=== PATIENT | female | born 1940 | race Caucasian/White ===

== ENCOUNTER → 2017-07-11 11:55 | Oncology outpatient (ONC) | payer OTHER, SELFPAY | PROVIDERS: Family Provider Physician Assistant; PCP Physician Assistant; Visit Provider Internal Medicine Hematology & Oncology ==

== ENCOUNTER 2018-11-25 23:28 | Emergency (ER) | payer MEDICARE, OTHER, SELFPAY ==
--- NOTE | 2018-11-25 23:31 | ED_ITS ---
HPI - Chest Pain General Chief Complaint: Chest Pain Stated Complaint: chest pain Time Seen by Provider: 11/25/18 23:31 Source: patient and family Mode of arrival: Ambulatory Limitations: no limitations History of Present Illness HPI narrative: 78F non smoker with history of severe GERD, HTN, hyperlipidemia, presents with 2 days of severe epigastric pain. She states its worse when she eats and refuses to lay flat as this worsens her pain as well. She denies any radiation of her pain. She denies associated symptoms such as dizziness, weakness, lightheadedness or shortness of breath. She exercises daily and d enies any provocation of symptoms. She states her symptoms started 2 days ago after eating soup with unknown ingredients. She denies recent travel, injury, surgeries, or pain and swelling in lower legs. She' shad no fever or chills. MD complaint: chest pain Onset (ago): day(s) Duration: constant Onset: after eating Pain location: epigastric Severity: moderate Quality: aching Pain radiation: none Exacerbating factors: eating, supine and palpation Associated symptoms: nausea Treatments prior to arrival chest pain: none Related Data On Oral Contraceptives: No Home Medications Medication Instructions Recorded Confirmed CALCIUM CITRATE/VITAMIN D3 2 tab PO QDAY #0 07/12/12 (Calcitrate + Vit D Caplet) COENZYME Q10/VITAMIN E (CO-Q-10 Q DAY #0 10/02/12 100mg) fexofenadine 90 mg PO QDAY #0 10/02/12 losartan 50 mg PO QDAY #0 10/02/12 melatonin 5 mg PO HS #0 10/02/12 simvastatin [Zocor] 20 mg HS #0 10/02/12 calcium carbonate [Tums] 500 mg PO PRN PRN #0 06/25/16 magnesium amino acid chelate 125 mg PO QDAY #0 06/25/16 Previous Rx's Medication Instructions Recorded estradiol [Estrace] 1 gm VAGINAL PRN PRN #1 tube 06/25/16 anastrozole 1 mg PO QDAY #90 tab 07/11/17 Allergies Allergy/AdvReac Type Severity Reaction Status Date / Time lisinopril [LISINOPRIL] Allergy Mild Cough Verified 11/25/18 23:40 lorazepam [LORAZEPAM] AdvReac Unknown DEPRESSION Verified 11/25/18 23:40 BRAZIL NUT Allergy Unknown Uncoded 05/18/17 12:19 Review of Systems Constitutional Constitutional: Denies chills, Denies fatigue, Denies fever(s), Denies frequent falls, Denies lethargy and Denies weakness Eyes Eyes: Denies change in vision, Denies eye discharge, Denies irritation and Denies loss of vision ENT Ears, Nose, Mouth, and Throat: Denies change in voice, Denies dizziness, Denies neck pain, Denies sore throat and Denies throat swelling Cardiovascular Cardiovascular: Denies chest pain, Denies irregular heart rhythm, Denies lightheadedness, Denies palpitations, Denies dyspnea, Denies dyspnea on exertion and Denies orthopnea Respiratory Respiratory: Denies cough, Denies dyspnea, Denies dyspnea on exertion and Denies wheezing Gastrointestinal Gastrointestinal: Reports abdominal pain, Denies change in bowel habits, Denies diarrhea, Reports nausea and Denies vomiting Genitourinary Genitourinary: Denies hematuria, Denies flank pain, Denies urinary incontinence and Denies urinary urgency Musculoskeletal Musculoskeletal: Denies back pain, Denies muscle weakness, Denies neck pain, Denies numbness and Denies tingling Integumentary/Breasts Skin/Breast: Denies pruritus, Denies erythema, Denies rash and Denies wounds Neurologic Neurologic: Denies behavioral changes, Denies confusion, Denies dizziness, Denies frequent falls, Denies loss of vision, Denies numbness, Denies tingling and Denies weakness Psychiatric Psychiatric: Denies anxiety, Denies behavioral changes, Denies confusion, Denies depression, Denies homicidal ideation and Denies suicidal ideation Endocrine Endocrine: Denies fatigue, Denies flushing and Denies palpitations Hematologic/Lymphatic Hematologic/Lymphatic: Denies easy bruising Allergic/Immunologic Allergic/Immunologic: Denies urticaria, Denies throat swelling and Denies wheezing Patient History Social History Smoking Status: Unknown if ever smoked Social History Smoking Status: Unknown if ever smoked Exam Narrative Exam Narrative: GENERAL: [78] year old patient appears stated age. Well- nourished, well-developed patient, in mild distress. HEAD: Atraumatic. Normocephalic. EYES: Pupils equal round and reactive. Extraocular motions intact. No scleral icterus. No injection or drainage. ENT: Nose without bleeding, purulent drainage. Throat without erythema, tonsillar hypertrophy or exudate. Airway patent. NECK: Trachea midline. Non tender CARDIOVASCULAR: Regular rate and rhythm without murmurs, gallops, or rubs. RESPIRATORY: Clear to auscultation. Breath sounds equal bilaterally. No wheezes, rales, or rhonchi. GASTROINTESTINAL: Abdomen soft, severe tenderness in the epigastrium, nondistended. EXTREMITIES: No edema or joint tenderness. BACK: Nontender without deformity or crepitance. No flank tenderness. NEURO: AOx3. SKIN: No rash or erythema of visible areas Initial Vital Signs Initial Vital Signs: Vital Signs Temperature 98.9 F 11/25/18 23:35 Pulse Rate 65 11/25/18 23:35 Respiratory Rate 14 11/25/18 23:35 Blood Pressure 158/109 H 11/25/18 23:35 Pulse Oximetry 100 11/25/18 23:35 Scores HEART Score Heart Score history: Slightly Suspicious Heart Score EKG: Normal Heart Score Age: > or = 65 years old Heart Score risk factors: 1-2 risk factors Heart Score troponin: < or = to normal limit Heart Score Total: 3 Course Course Course Narrative: Patient resting comfortably after the above-stated medications Orders Ordered: ED Orders 11/25/18 23:35 Complete Blood Count AUTO DIFF Stat Comprehensive Metabolic Panel Stat Lipase Stat Troponin & CK Cardiac Panel Stat 11/25/18 23:36 EKG-12 Lead Routine 11/25/18 23:39 XR chest 1V Stat 11/26/18 US abdomen limited Stat 11/26/18 00:54 CT chest abdomen w con Stat 11/26/18 02:21 Troponin I Stat Discontinued Medications Hydrocodone Bitart/Acetaminophen (Vicodin Prepack) 1 bottle MISC SEEINSTR ONE Stop: 11/26/18 04:08 Last Admin: 11/26/18 04:18 Dose: 1 bottle Documented by: MICHAELN Al Hydrox/Mg Hydrox/Simethicone 20 ml/ Lidocaine HCl 15 ml 0 ml PO NOW ONE Stop: 11/25/18 23:40 Last Admin: 11/25/18 23:45 Dose: 30 ml Documented by: KBROTEM Hydromorphone HCl (Dilaudid) 0.5 mg IV NOW ONE Stop: 11/26/18 02:11 Last Admin: 11/26/18 02:19 Dose: 0.5 mg Documented by: MILLER Sodium Chloride (Normal Saline 0.9%) 1,000 mls @ 150 mls/hr IV CONT ROXANNE Last Infusion: 11/26/18 04:19 Dose: 0 mls/hr Documented by: Admin: 11/25/18 23:46 Dose: 150 mls/hr Documented by: VIOLET Ketorolac Tromethamine (Toradol) 15 mg IV NOW ONE Stop: 11/26/18 00:55 Last Admin: 11/26/18 00:58 Dose: 15 mg Documented by: MILLER Ondansetron HCl (Zofran Odt Prepack) 1 bottle MISC SEEINSTR ONE Stop: 11/26/18 04:08 Last Admin: 11/26/18 04:18 Dose: 1 bottle Documented by: NILESH Pantoprazole Sodium (Protonix) 40 mg IV NOW ONE Stop: 11/25/18 23:40 Last Admin: 11/25/18 23:45 Dose: 40 mg Documented by: VIOLET Vital Signs Vital signs: Vital Signs - 8 hr 11/25/18 23:35 11/26/18 00:00 11/26/18 00:30 Temperature 98.9 F Pulse Rate 65 71 60 Respiratory Rate 14 21 18 Blood Pressure 158/109 H Blood Pressure [Right Arm] 140/60 127/57 L Pulse Oximetry 100 98 96 11/26/18 01:53 11/26/18 02:30 11/26/18 04:00 Temperature Pulse Rate 61 48 L 49 L Respiratory Rate 22 15 14 Blood Pressure Blood Pressure [Right Arm] 137/70 127/57 L 118/49 L Pulse Oximetry 95 94 98 11/26/18 04:26 Temperature Pulse Rate 52 L Respiratory Rate 15 Blood Pressure 118/49 L Blood Pressure [Right Arm] Pulse Oximetry 99 MDM - Chest Pain Lab Data Result diagrams: 11/25/18 23:35 11/25/18 23:35 Labs: Lab Results 11/25/18 11/25/18 11/26/18 Range/Units 23:35 23:35 02:21 WBC 5.1 (4.5-11.0) X10^3/uL RBC 3.84 L (4.0-5.2) X10^6/uL Hgb 11.8 L (12.0-16.0) g/dL Hct 34.6 L (36-46) % MCV 90.1 (80-100) fL MCH 30.7 (26-34) PG MCHC 34.1 (30-36) % RDW 12.7 (11.6-14.8) % Plt Count 251 (150-400) X10^3/uL Neut % (Auto) 48.0 L (50-75) % Lymph % (Auto) 37.6 (25-40) % [place] % (Auto) 9.6 (3-14) % Eos % (Auto) 4.1 H (2-4) % Baso % (Auto) 0.7 (0-2) % Neut # (Auto) 2500 (4511-7116) /uL Lymph # (Auto) 1900 (2775-7219) /uL [place] # (Auto) 500 (0-900) /uL Eos # (Auto) 200 (0-450) /uL Baso # (Auto) 0 (0-100) /uL Sodium 141 (137-145) mmol/L Potassium 4.5 (3.4-5.1) mmol/L Chloride 105 (98-107) mmol/L Carbon Dioxide 29 (22-32) mmol/L BUN 19 H (7-17) mg/dL Creatinine 0.70 (0.52-1.04) mg/dL Estimated GFR > 60.0 (>60) mL/min BUN/Creatinine Ratio 27.1 H (6-22) Glucose 103 (80-110) mg/dL Calcium 10.4 H (8.4-10.2) mg/dL Total Bilirubin 0.2 (0.2-1.3) mg/dL AST 27 (14-36) IU/L ALT 13 (9-52) IU/L Alkaline Phosphatase 42 (38-126) U/L Total Creatine Kinase 51 (30-135) U/L CK-MB (CK-2) TNP CK-MB (CK-2) Rel Index TNP Troponin I < 0.012 < 0.012 (0.01-0.034) ng/mL Total Protein 7.9 (6.3-8.2) g/dL Albumin 4.7 (3.5-5.0) g/dL Globulin 3.2 (1.7-4.1) g/dL Albumin/Globulin Ratio 1.5 (1.0-2.8) Lipase 126 (23-300) U/L Imaging Data Chest x-ray: Attestation: I personally reviewed and interpreted this imaging study as follows: My impression: No acute process CT scan - chest: Radiologist's impression: Normal CT of chest, mild dilation of ga llbladder, no other significant findings in CT of abdomen ECG Data Attestation: I personally reviewed and interpreted this ECG as follows: Prior ECG tracings: not available for review Interpretation: EKG is normal sinus rhythm rate [61 ] and free of any signs of ischemia or ectopy. No ST segmental elevation or depression. No T wave inversions MDM Narrative Medical decision making narrative: Multiple causes of chest pain considered including [place], PE, pneumothorax, pneumonia, aortic dissection, and pleurisy. Patient reports no radiation, no diaphoresis, no provocation with exertion, and no vomiting Patient has reproducible epigastric pain, worse when laying flat. Labs are very reassuring and patient experience tremendous response to medications and felt quite good. Discharge Plan Departure Patient Disposition: Home Clinical Impression: Epigastric pain Discharge Date/Time: 11/26/18 04:27 Instructions: DI for Epigastric Pain Activity Restrictions/Additional Instructions: *You have been diagnosed with [epigastric pain] *What to do: *Take medications as directed *Follow up with your primary care provider in 2-3 days, call for an appointment. Let them know you were seen in the Emergency Department and that we ask that you be seen in follow up *Return to ER if you should have any new, worsening or concerning symptoms Prescriptions: No Action CALCIUM CITRATE/VITAMIN D3 (Calcitrate + Vit D Caplet) 2 tab PO QDAY Qty: 0 RF: 0 melatonin 3 MG tablet 5 mg PO HS Qty: 0 RF: 0 fexofenadine 180 MG tablet 90 mg PO QDAY Qty: 0 RF: 0 simvastatin [Zocor] 20 MG tablet 20 mg HS Qty: 0 RF: 0 losartan 25 MG tablet 50 mg PO QDAY Qty: 0 RF: 0 COENZYME Q10/VITAMIN E (CO-Q-10 100mg) Q DAY Qty: 0 RF: 0 magnesium amino acid chelate 100 MG tablet 125 mg PO QDAY Qty: 0 RF: 0 calcium carbonate [Tums] 500 MG tablet,chewable 500 mg PO PRN PRNQty: 0 RF: 0 estradiol [Estrace] 0.01 % cream 1 gm Vaginal PRN PRNQty: 1 RF: 3 anastrozole 1 MG tablet 1 mg PO QDAY Qty: 90 RF: 2 Referrals: Anyi Pérez PA-C [Primary Care Provider] -
[2018-11-25 23:35] VITALS: BP 158/109; PULSE 65; RESP 14; TEMP 37.2; O2SAT 100; BMI 25.0
--- NOTE | 2018-11-25 23:39 | DI.RAD.S_ITS ---
PROCEDURE: XR CHEST 1V INDICATIONS: chest pain TECHNIQUE: One view of the chest was acquired. COMPARISON: [facility], , CHEST 1 VIEW, 05/01/2014, 17:37. FINDINGS: Surgical changes and devices: None. Lungs and pleura: Lungs are clear. No pleural effusions or pneumothorax. Mediastinum: Mediastinal contours appear normal. Heart size is normal. Calcified tortuous aorta. Bones and chest wall: No suspicious bony lesions. Levocurvature of the thoracic spine. Overlying soft tissues appear unremarkable. IMPRESSION: No acute cardiopulmonary findings. Dictated by: Pancho Shelton M.D. on 11/26/2018 at 6:57 Approved by: Pancho Shelton M.D. on 11/26/2018 at 7:00
[2018-11-25] MEDS: PANTOPRAZOLE 40 MG VIAL IV (23:45)
[2018-11-25] MEDS: MAG HYDROX/ALUMINUM/SIMETH SUS 20 ML, LIDOCAINE VISCOUS 2% 15 ML PO (23:45)
[2018-11-25] MEDS: SODIUM CHLORIDE 0.9% 1,000 ML 150 ML IV (23:46)
[2018-11-25 23:55] LABS: Add Manual Diff / Slide Review NO; Basophils Absolute Auto 0 /uL (0-100); Basophils Percent Auto 0.7 % (0-2); Eosinophils Absolute Auto 200 /uL (0-450); Eosinophils Percent Auto 4.1 % (2-4); Hematocrit 34.6 % (36-46); Hemoglobin 11.8 g/dL (12.0-16.0); Lymphocytes Absolute Auto 1900 /uL (1100-4500); Lymphocytes Percent Auto 37.6 % (25-40); Mean Corpuscular HGB Conc 34.1 % (30-36); Mean Corpuscular Hemoglobin 30.7 PG (26-34); Mean Corpuscular Volume 90.1 fL (80-100); Monocytes Absolute Auto 500 /uL (0-900); Monocytes Percent Auto 9.6 % (3-14); Neutrophils Absolute Auto 2500 /uL (1500-7000); Platelet Count 251 X10^3/uL (150-400); Red Blood Cell Count 3.84 X10^6/uL (4.0-5.2); Red Cell Distribution Width 12.7 % (11.6-14.8); White Blood Cell Count 5.1 X10^3/uL (4.5-11.0)
[2018-11-26] VITALS: BP 140/60; PULSE 71; RESP 21; O2SAT 98
--- NOTE | 2018-11-26 | DI.US.S_ITS ---
PROCEDURE: US ABDOMEN LIMITED INDICATIONS: SEVERE EPIGASTRIC PAIN TECHNIQUE: Real-time scanning was performed of the abdominal and retroperitoneal organs, with image documentation. COMPARISON: None. FINDINGS: Liver: Liver is normal in size and homogeneous in echotexture. Gallbladder: Distended without gallstones, gallbladder wall thickening, or pericholecystic fluid. Biliary ducts: Intrahepatic bile ducts are non-dilated. Extrahepatic bile duct caliber measures 4.7 mm. Normal is 6-7 mm or less in diameter, or 10 mm or less post-cholecystectomy. Pancreas: Visualized portions of the pancreas are sonographically normal. Spleen: Spleen is normal in size and homogeneous in echotexture. Kidneys: Kidneys are subjectively normal in size and echotexture. No hydronephrosis or nephrolithiasis. No solid masses. Miscellaneous: No free abdominal fluid. IMPRESSION: No cholelithiasis or acute cholecystitis. Dictated by: Pancho Shelton M.D. on 11/26/2018 at 7:00 Approved by: Pancho Shelton M.D. on 11/26/2018 at 7:06
[2018-11-26 00:04] LABS: Alanine Aminotransferase 13 IU/L (9-52); Albumin 4.7 g/dL (3.5-5.0); Albumin Globulin Ratio 1.5 (1.0-2.8); Alkaline Phosphatase 42 U/L (38-126); Aspartate Aminotransferase 27 IU/L (14-36); BUN Creatinine Ratio 27.1 (6-22); Bilirubin Total 0.2 mg/dL (0.2-1.3); Blood Urea Nitrogen 19 mg/dL (7-17); Calcium 10.4 mg/dL (8.4-10.2); Carbon Dioxide 29 mmol/L (22-32); Chloride 105 mmol/L (98-107); Creatine Kinase 51 U/L (30-135); Estimated Glomerular Filt Rate > 60.0 mL/min (>60); Globulin 3.2 g/dL (1.7-4.1); Glucose 103 mg/dL (80-110); HEMOLYSIS < 15 (0-50); Lipase 126 U/L (23-300); Potassium 4.5 mmol/L (3.4-5.1); Sodium 141 mmol/L (137-145); Total Protein 7.9 g/dL (6.3-8.2)
[2018-11-26 00:16] LABS: Troponin I < 0.012 ng/mL (0.01-0.034)
[2018-11-26 00:30] VITALS: BP 127/57; PULSE 60; RESP 18; O2SAT 96
--- NOTE | 2018-11-26 00:54 | DI.CT.S_ITS ---
PROCEDURE: CT CHEST ABDOMEN W CON INDICATIONS: severe upper abdomen / chest pain TECHNIQUE: After the administration of intravenous contrast, 5 mm thick sections acquired from the lung apices to the iliac crests. 5 mm coronal and sagittal reformats were performed, with additional 7 mm coronal MIP reformats through the lungs. For radiation dose reduction, the following was used: automated exposure control, adjustment of mA and/or kV according to patient size. COMPARISON: None. FINDINGS: Image quality: Excellent. CHEST: Lungs and pleura: Volume loss/scarring in the lung bases. No focal consolidation, pleural effusion, or pneumothorax. Central airways are clear. Mediastinum: Heart size is normal. No pericardial effusion. No mediastinal or hilar adenopathy by size criteria. Thoracic aorta and central pulmonary arteries are normal in size. Esophagus is normal in caliber. No hiatal hernia. Chest wall: No axillary or supraclavicular adenopathy by size criteria. Thyroid gland is unremarkable. ABDOMEN: Solid organs: Liver is normal in size and enhancement. Gallbladder distended without identify gallstones or gallbladder wall thickening. Biliary system is non dilated. Pancreas enhances normally. Spleen is normal in size and enhancement. No adrenal nodules. Kidneys demonstrate normal size and enhancement, without hydronephrosis. Peritoneum and bowel: Bowel loops demonstrate normal wall thickness and caliber. No free fluid or air. Nodes and vessels: No retroperitoneal or mesenteric adenopathy by size criteria. Aorta and inferior vena cava are normal in size. Vascular calcification of the abdominal aorta and its branches. Bones: No suspicious bony lesions. No vertebral body compression fractures. Mild degenerative changes of the spine. S-shaped curvature of the thoracolumbar spine. Miscellaneous: No ventral hernias. Postsurgical changes of the left breast. IMPRESSION: No acute or suspicious findings in the chest. Distention of the gallbladder without other associated abnormality. Note: No discrepancy present in the preliminary report. Dictated by: Pancho Shelton M.D. on 11/26/2018 at 7:06 Approved by: Pancho Shelton M.D. on 11/26/2018 at 7:16
[2018-11-26] MEDS: KETOROLAC 60 MG/2 ML VIAL 15 MG IV (00:58)
[2018-11-26 01:53] VITALS: BP 137/70; PULSE 61; RESP 22; O2SAT 95
[2018-11-26] MEDS: HYDROMORPHONE 0.5 MG INJ IV (02:19)
[2018-11-26 02:30] VITALS: BP 127/57; PULSE 48; RESP 15; O2SAT 94
[2018-11-26 02:52] LABS: Troponin I < 0.012 ng/mL (0.01-0.034)
[2018-11-26 04:00] VITALS: BP 118/49; PULSE 49; RESP 14; O2SAT 98
[2018-11-26] MEDS: ONDANSETRON 4 MG ODT PREPACK 1 BOTTLE MISC (04:18)
[2018-11-26] MEDS: HYDROCODONE/ACET 5/325 PREPACK 1 BOTTLE MISC (04:18)
[2018-11-26 04:26] VITALS: BP 118/49; PULSE 52; RESP 15; O2SAT 99
== END 2018-11-26 04:27 | disposition home or self-care (01) ==
PROVIDERS: Emergency Provider Emergency Medicine; PCP Student in an Organized Health Care Education/Training Program
DX: R10.13 Epigastric pain (principal); R07.9 Chest pain, unspecified
CPT/HCPCS: 36415; 71045; 71260; 74160; 76705; 80053; 82550; 82553; 83690; 84484; 85025; 93005; 96361; 96374; 96375; 99283; 99285; C9113; J1170; J1885; Q9967

== ENCOUNTER 2019-02-19 19:28 | Emergency (ER) | payer MEDICARE, OTHER, SELFPAY ==
[2019-02-19 19:36] VITALS: BP 159/65; PULSE 59; RESP 12; TEMP 36.6; O2SAT 100
--- NOTE | 2019-02-19 19:38 | ED.CHESTPAIN ---
HPI - Chest Pain General Chief Complaint: Chest Pain Stated Complaint: Heart Burn and Elevated BP Time Seen by Provider: 02/19/19 19:38 Related Data Home Medications Medication Instructions Recorded Confirmed CALCIUM CITRATE/VITAMIN D3 2 tab PO QDAY #0 07/12/12 (Calcitrate + Vit D Caplet) COENZYME Q10/VITAMIN E (CO-Q-10 Q DAY #0 10/02/12 100mg) fexofenadine 90 mg PO QDAY #0 10/02/12 losartan 50 mg PO QDAY #0 10/02/12 melatonin 5 mg PO HS #0 10/02/12 simvastatin [Zocor] 20 mg HS #0 10/02/12 calcium carbonate [Tums] 500 mg PO PRN PRN #0 06/25/16 magnesium amino acid chelate 125 mg PO QDAY #0 06/25/16 Previous Rx's Medication Instructions Recorded estradiol [Estrace] 1 gm VAGINAL PRN PRN #1 tube 06/25/16 anastrozole 1 mg PO QDAY #90 tab 07/11/17 Allergies Allergy/AdvReac Type Severity Reaction Status Date / Time lisinopril [LISINOPRIL] Allergy Mild Cough Verified 11/25/18 23:40 lorazepam [LORAZEPAM] AdvReac Unknown DEPRESSION Verified 11/25/18 23:40 BRAZIL NUT Allergy Unknown Uncoded 05/18/17 12:19 Patient History Social History Smoking Status: Unknown if ever smoked Smoking Status: Unknown if ever smoked alcohol intake frequency: 0-2 drinks per day Substance Use Type: does not use Discharge Plan Departure Prescriptions: No Action CALCIUM CITRATE/VITAMIN D3 (Calcitrate + Vit D Caplet) 2 tab PO QDAY Qty: 0 RF: 0 melatonin 3 MG tablet 5 mg PO HS Qty: 0 RF: 0 fexofenadine 180 MG tablet 90 mg PO QDAY Qty: 0 RF: 0 simvastatin [Zocor] 20 MG tablet 20 mg HS Qty: 0 RF: 0 losartan 25 MG tablet 50 mg PO QDAY Qty: 0 RF: 0 COENZYME Q10/VITAMIN E (CO-Q-10 100mg) Q DAY Qty: 0 RF: 0 magnesium amino acid chelate 100 MG tablet 125 mg PO QDAY Qty: 0 RF: 0 calcium carbonate [Tums] 500 MG tablet,chewable 500 mg PO PRN PRNQty: 0 RF: 0 estradiol [Estrace] 0.01 % cream 1 gm Vaginal PRN PRNQty: 1 RF: 3 anastrozole 1 MG tablet 1 mg PO QDAY Qty: 90 RF: 2
--- NOTE | 2019-02-19 19:45 | DI.RAD.S_ITS ---
PROCEDURE: XR CHEST 1V INDICATIONS: Chest pain TECHNIQUE: One view of the chest was acquired. COMPARISON: [facility], CT, CT CHEST ABDOMEN W CON, 11/26/2018, 1:09. [facility], CR, XR CHEST 1V, 11/25/2018, 23:51. [facility], CR, CHEST 1 VIEW, 05/01/2014, 17:37. FINDINGS: Surgical changes and devices: Left breast surgical clips. Lungs and pleura: Lungs are clear. No pleural effusions or pneumothorax. Mediastinum: Mediastinal contours appear normal. Heart size is normal. Bones and chest wall: No suspicious bony lesions. Degenerative change of the right a.c. joint. Overlying soft tissues appear unremarkable. IMPRESSION: No acute cardiopulmonary abnormality. Dictated by: Олег Rodas M.D. on 02/19/2019 at 20:36 Approved by: Олег Rodas M.D. on 02/19/2019 at 20:38
--- NOTE | 2019-02-19 19:47 | ED_ITS ---
HPI - Chest Pain General Chief Complaint: Chest Pain Stated Complaint: Heart Burn and Elevated BP Time Seen by Provider: 02/19/19 19:38 Source: patient Mode of arrival: Ambulatory Limitations: no limitations History of Present Illness HPI narrative: The patient presents with substernal pain, onset this afternoon. The pain is wax and wane throughout the course today. The pain does not radiate. She has no associated weakness, dizziness or dyspnea. She has had no URI symptoms, no ENT complaints. She has no cough, orthopnea. She has no fever. She has no history of CAD. She does have a history of GERD that is controlled by diet, lifestyle choices. She is on no GI medications. She has had prior workups in the past of similar pain, never finding cardiac disease, consistently been diagnosed with GERD. She does take medications for hyperlipidemia. She has no tobacco use. She has no history of hypertension or diabetes. She does have a history of sister dying from cardiac disease. Related Data Home Medications Medication Instructions Recorded Confirmed CALCIUM CITRATE/VITAMIN D3 2 tab PO QDAY #0 07/12/12 (Calcitrate + Vit D Caplet) COENZYME Q10/VITAMIN E (CO-Q-10 Q DAY #0 10/02/12 100mg) fexofenadine 90 mg PO QDAY #0 10/02/12 losartan 50 mg PO QDAY #0 10/02/12 melatonin 5 mg PO HS #0 10/02/12 simvastatin [Zocor] 20 mg HS #0 10/02/12 calcium carbonate [Tums] 500 mg PO PRN PRN #0 06/25/16 magnesium amino acid chelate 125 mg PO QDAY #0 06/25/16 Previous Rx's Medication Instructions Recorded estradiol [Estrace] 1 gm VAGINAL PRN PRN #1 tube 06/25/16 anastrozole 1 mg PO QDAY #90 tab 07/11/17 pantoprazole [Protonix] 40 mg PO DAILY 28 Days tab 02/19/19 Allergies Allergy/AdvReac Type Severity Reaction Status Date / Time lisinopril [LISINOPRIL] Allergy Mild Cough Verified 11/25/18 23:40 lorazepam [LORAZEPAM] AdvReac Unknown DEPRESSION Verified 11/25/18 23:40 BRAZIL NUT Allergy Unknown Uncoded 05/18/17 12:19 Review of Systems Review of Systems ROS Unobtainable: All systems reviewed & are unremarkable except as noted in HPI and below Constitutional Constitutional: Denies chills, Denies fatigue, Denies fever(s) and Denies lethargy Eyes Eyes: Denies change in vision ENT Ears, Nose, Mouth, and Throat: Denies throat swelling Comments: No ENT complaints Cardiovascular Cardiovascular: Reports as per HPI and Denies dyspnea Respiratory Respiratory: Denies cough and Denies dyspnea Gastrointestinal Gastrointestinal: Reports abdominal pain (Epigastric), Denies melena, Denies hem atochezia, Reports heartburn, Denies diarrhea, Denies nausea and Denies vomiting Genitourinary Comments: No urinary complaints Musculoskeletal Musculoskeletal: Denies back pain, Denies muscle weakness, Denies numbness and Denies tingling Integumentary/Breasts Skin/Breast: Denies pruritus, Denies erythema, Denies rash and Denies wounds Neurologic Neurologic: Denies confusion, Denies numbness and Denies tingling Psychiatric Psychiatric: Denies anxiety, Denies confusion and Denies depression Endocrine Endocrine: Denies fatigue and Denies flushing Hematologic/Lymphatic Hematologic/Lymphatic: Denies easy bleeding Allergic/Immunologic Allergic/Immunologic: Denies urticaria and Denies throat swelling Patient History Social History Smoking Status: Unknown if ever smoked Smoking Status: Unknown if ever smoked alcohol intake frequency: 0-2 drinks per day Substance Use Type: does not use Exam Initial Vital Signs Initial Vital Signs: Vital Signs Temperature 98 F 02/19/19 19:36 Pulse Rate 59 L 02/19/19 19:36 Respiratory Rate 12 02/19/19 19:36 Blood Pressure 159/65 H 02/19/19 19:36 Pulse Oximetry 100 02/19/19 19:36 Const General: cooperative and well developed Nutritional Appearance: well nourished [facility] Head: normocephalic and atraumatic Nose: external nose normal Mouth: oral mucosae normal and moist mucous membranes Throat: posterior oropharynx normal, tonsils normal and uvula midline Eyes General: appearance normal, both eyes and all related structures Neck Neck: No JVD Chest Chest: normal inspection of the chest Resp Effort & Inspection: normal respiratory effort and able to speak in complete sentences Auscultation: clear to auscultation bilaterally, no rales, no rhonchi and no wheezes Cardio Rate: regular rate Rhythm: regular rhythm Heart Sounds: S1 normal, S2 normal, no click, no gallops, no murmurs and no rubs Pulses: normal peripheral pulses GI Inspection: non-distended Palpation: soft, no hepatosplenomegaly, No guarding, No pulsatile mass and tender (Mild epigastric tenderness) Auscultation: normal bowel sounds Back/Spine/Pelvis Back: No CVA tenderness Skin General: no rashes or lesions noted, No jaundice and No petechiae Neuro General: alert, oriented x3, gait normal and no focal motor deficits Speech: speech normal Extrem General: no pedal edema and no calf tenderness Course Course Course Narrative: The combination of a GI cocktail and Protonix resolved her pain. Her pain was already decline but has been waxing/waning. She has had multiple evaluations, it has repeatedly been suggested the pain is GERD. She has risk factors of family history of hyperlipidemia. She has no personal cardiac history. Her workup today is benign, and she has improved with GI medications. I've suggested cardiology evaluation. I've given contact information with Dr. Dalal, cardiology. Orders Ordered: ED Orders 02/19/19 19:35 EKG-12 Lead Stat 02/19/19 19:45 XR chest 1V Stat Complete Blood Count AUTO DIFF Stat Comprehensive Metabolic Panel Stat Lipase Stat Troponin & CK Cardiac Panel Stat Discontinued Medications Aspirin (Aspirin Chew) 324 mg PO NOW ONE Stop: 02/19/19 19:46 Last Admin: 02/19/19 19:58 Dose: 324 mg Documented by: MILLER Al Hydrox/Mg Hydrox/Simethicone 20 ml/ Lidocaine HCl 15 ml 0 ml PO NOW ONE Stop: 02/19/19 20:05 Last Admin: 02/19/19 20:12 Dose: 35 ml Documented by: MILLER Pantoprazole Sodium (Protonix) 40 mg IV NOW ONE Stop: 02/19/19 19:46 Last Admin: 02/19/19 19:58 Dose: 40 mg Documented by: MILLER Vital Signs Vital signs: Vital Signs - 8 hr 02/19/19 19:36 02/19/19 20:03 Temperature 98 F Pulse Rate 59 L 61 Respiratory Rate 12 15 Blood Pressure 159/65 H Blood Pressure [Right Arm] 139/56 L Pulse Oximetry 100 96 MDM - Chest Pain Lab Data Result diagrams: 02/19/19 19:45 02/19/19 19:45 Labs: Lab Results 02/19/19 02/19/19 Range/Units 19:45 19:45 WBC 4.9 (4.5-11.0) X10^3/uL RBC 3.70 L (4.0-5.2) X10^6/uL Hgb 11.1 L (12.0-16.0) g/dL Hct 33.3 L (36-46) % MCV 90.1 (80-100) fL MCH 30.0 (26-34) PG MCHC 33.4 (30-36) % RDW 13.9 (11.6-14.8) % Plt Count 259 (150-400) X10^3/uL Neut % (Auto) 54.0 (50-75) % Lymph % (Auto) 31.9 (25-40) % [place] % (Auto) 10.4 (3-14) % Eos % (Auto) 3.0 (2-4) % Baso % (Auto) 0.7 (0-2) % Neut # (Auto) 2600 (8048-7740) /uL Lymph # (Auto) 1600 (0894-7351) /uL [place] # (Auto) 500 (0-900) /uL Eos # (Auto) 100 (0-450) /uL Baso # (Auto) 0 (0-100) /uL Sodium 139 (137-145) mmol/L Potassium 3.7 (3.4-5.1) mmol/L Chloride 104 (98-107) mmol/L Carbon Dioxide 26 (22-32) mmol/L BUN 22 H (7-17) mg/dL Creatinine 0.70 (0.52-1.04) mg/dL Estimated GFR > 60.0 (>60) mL/min BUN/Creatinine Ratio 31.4 H (6-22) Glucose 139 H (80-110) mg/dL Calcium 10.2 (8.4-10.2) mg/dL Total Bilirubin 0.2 (0.2-1.3) mg/dL AST 31 (14-36) IU/L ALT 16 (<35) IU/L Alkaline Phosphatase 38 (38-126) U/L Total Creatine Kinase 52 (30-135) U/L CK-MB (CK-2) TNP CK-MB (CK-2) Rel Index TNP Troponin I 0.016 (0.01-0.034) ng/mL Total Protein 7.8 (6.3-8.2) g/dL Albumin 4.5 (3.5-5.0) g/dL Globulin 3.3 (1.7-4.1) g/dL Albumin/Globulin Ratio 1.4 (1.0-2.8) Lipase 102 (23-300) U/L Imaging Data Chest x-ray: Radiologist's Impression: No acute cardiopulmonary process. ECG Data Attestation: I personally reviewed and interpreted this ECG as follows: (Sinus bradycardia rate 55 beats per minute. Normal intervals. No ectopy. ) Discharge Plan Departure Patient Disposition: Home Clinical Impression: Epigastric pain Instructions: DI for Chest Pain Activity Restrictions/Additional Instructions: Protonix 1 tablet daily as prescribed. With initials recurring pain, there needs to be further assurance that her heart is functioning well. I think this probably your stomach. However I would suggest following up with cardiology for further evaluation. I will give you contact information for local creel operator, Dr. Dalal. Prescriptions: New pantoprazole [Protonix] 40 mg tablet,delayed release (DR/EC) 40 mg PO DAILY 28 Days RF: 0 No Action CALCIUM CITRATE/VITAMIN D3 (Calcitrate + Vit D Caplet) 2 tab PO QDAY Qty: 0 RF: 0 melatonin 3 MG tablet 5 mg PO HS Qty: 0 RF: 0 fexofenadine 180 MG tablet 90 mg PO QDAY Qty: 0 RF: 0 simvastatin [Zocor] 20 MG tablet 20 mg HS Qty: 0 RF: 0 losartan 25 MG tablet 50 mg PO QDAY Qty: 0 RF: 0 COENZYME Q10/VITAMIN E (CO-Q-10 100mg) Q DAY Qty: 0 RF: 0 magnesium amino acid chelate 100 MG tablet 125 mg PO QDAY Qty: 0 RF: 0 calcium carbonate [Tums] 500 MG tablet,chewable 500 mg PO PRN PRNQty: 0 RF: 0 estradiol [Estrace] 0.01 % cream 1 gm Vaginal PRN PRNQty: 1 RF: 3 anastrozole 1 MG tablet 1 mg PO QDAY Qty: 90 RF: 2 Referrals: Pérez,Anyi, PA-C [Primary Care Provider] - Chelle Dalal MD [Physician] -
--- NOTE | 2019-02-19 19:47 | PC.NURSE ---
reports sudden onset of epigastric chest pain. hx of gerd controlled with diet. she reports she used to take antacid medications but has switched to an acid diet and has had no need for medications since. She reports on and off nausea with this episode.
[2019-02-19] MEDS: ASPIRIN 81 MG CHEW TAB 324 MG PO (19:58)
[2019-02-19] MEDS: PANTOPRAZOLE 40 MG VIAL IV (19:58)
[2019-02-19 19:59] LABS: Add Manual Diff / Slide Review NO; Basophils Absolute Auto 0 /uL (0-100); Basophils Percent Auto 0.7 % (0-2); Eosinophils Absolute Auto 100 /uL (0-450); Hematocrit 33.3 % (36-46); Hemoglobin 11.1 g/dL (12.0-16.0); Lymphocytes Absolute Auto 1600 /uL (1100-4500); Lymphocytes Percent Auto 31.9 % (25-40); Mean Corpuscular HGB Conc 33.4 % (30-36); Mean Corpuscular Volume 90.1 fL (80-100); Monocytes Absolute Auto 500 /uL (0-900); Monocytes Percent Auto 10.4 % (3-14); Neutrophils Absolute Auto 2600 /uL (1500-7000); Platelet Count 259 X10^3/uL (150-400); Red Cell Distribution Width 13.9 % (11.6-14.8); White Blood Cell Count 4.9 X10^3/uL (4.5-11.0)
[2019-02-19 20:03] VITALS: BP 139/56; PULSE 61; RESP 15; O2SAT 96
[2019-02-19] MEDS: MAG HYDROX/ALUMINUM/SIMETH SUS 20 ML, LIDOCAINE VISCOUS 2% 15 ML PO (20:12)
[2019-02-19 20:14] LABS: Alanine Aminotransferase 16 IU/L (<35); Albumin 4.5 g/dL (3.5-5.0); Albumin Globulin Ratio 1.4 (1.0-2.8); Alkaline Phosphatase 38 U/L (38-126); Aspartate Aminotransferase 31 IU/L (14-36); BUN Creatinine Ratio 31.4 (6-22); Bilirubin Total 0.2 mg/dL (0.2-1.3); Blood Urea Nitrogen 22 mg/dL (7-17); Calcium 10.2 mg/dL (8.4-10.2); Carbon Dioxide 26 mmol/L (22-32); Chloride 104 mmol/L (98-107); Creatine Kinase 52 U/L (30-135); Estimated Glomerular Filt Rate > 60.0 mL/min (>60); Globulin 3.3 g/dL (1.7-4.1); Glucose 139 mg/dL (80-110); HEMOLYSIS < 15 (0-50); Lipase 102 U/L (23-300); Potassium 3.7 mmol/L (3.4-5.1); Sodium 139 mmol/L (137-145); Total Protein 7.8 g/dL (6.3-8.2)
[2019-02-19 20:26] LABS: Troponin I 0.016 ng/mL (0.01-0.034)
[2019-02-19 21:08] VITALS: BP 140/60; PULSE 56; RESP 16; O2SAT 97
[2019-02-19 21:16] VITALS: BP 140/60; PULSE 58; RESP 15; O2SAT 99
== END 2019-02-19 21:17 | disposition home or self-care (01) ==
PROVIDERS: Emergency Provider Emergency Medicine; PCP Student in an Organized Health Care Education/Training Program
DX: R10.13 Epigastric pain (principal); I10 Essential (primary) hypertension; R00.1 Bradycardia, unspecified
CPT/HCPCS: 36415; 71045; 80053; 82550; 83690; 84484; 85025; 93005; 96374; 99284; 99285; C9113

== ENCOUNTER 2020-04-14 21:56 | Emergency (ER) | payer OTHER, SELFPAY ==
--- NOTE | 2020-04-14 21:59 | ED_ITS ---
HPI - General Adult General Chief complaint: Chest Pain Stated complaint: CHEST PAIN Time Seen by Provider: 04/14/20 21:59 Source: patient Mode of arrival: Ambulatory Limitations: no limitations History of Present Illness HPI narrative: Patient is a 79-year-old female who in the middle of the afternoon developed some epigastric chest discomfort. She states that it started after she was on her roof today clearing off some loss. She states that when she came down off the roof she was very sore throughout her body and as the rest of her soreness improved to the epigastric discomfort continued. She states that she has not had any nausea or vomiting. No change in bowel habits. No urinary symptoms. Has not tried anything for the symptoms prior to arrival. It is not worse with eating. Not worse with breathing. No worse with moving. Not worse with touching the area. She states that several years ago she had very similar discomfort and was diagnosed with reflux disease. She states that time she did have a cardiac workup to include a stress test. She has never had a heart attack before. Is not on anticoagulation. Does not take aspirin. Does not take nonsteroidal anti-inflammatories. Does drink 1 drink of alcohol a night. Related Data Home Medications Medication Instructions Recorded Confirmed CALCIUM CITRATE/VITAMIN D3 2 tab PO QDAY #0 07/12/12 (Calcitrate + Vit D Caplet) COENZYME Q10/VITAMIN E (CO-Q-10 Q DAY #0 10/02/12 100mg) fexofenadine 90 mg PO QDAY #0 10/02/12 losartan 50 mg PO QDAY #0 10/02/12 melatonin 5 mg PO HS #0 10/02/12 simvastatin [Zocor] 20 mg HS #0 10/02/12 calcium carbonate [Tums] 500 mg PO PRN PRN #0 06/25/16 magnesium amino acid chelate 125 mg PO QDAY #0 06/25/16 Previous Rx's Medication Instructions Recorded estradiol [Estrace] 1 gm VAGINAL PRN PRN #1 tube 06/25/16 anastrozole 1 mg PO QDAY #90 tab 07/11/17 Allergies Allergy/AdvReac Type Severity Reaction Status Date / Time lisinopril [LISINOPRIL] Allergy Mild Cough Verified 11/25/18 23:40 lorazepam [LORAZEPAM] AdvReac Unknown DEPRESSION Verified 11/25/18 23:40 BRAZIL NUT Allergy Unknown Uncoded 05/18/17 12:19 Review of Systems Constitutional Constitutional: Denies fever(s) and Denies headache(s) ENT Ears, Nose, Mouth, and Throat: Denies headache(s) Cardiovascular Cardiovascular: Reports chest pain (Epigastric pain), Denies rapid heart rate, Denies lightheadedness and Denies dyspnea Respiratory Respiratory: Denies cough and Denies dyspnea Gastrointestinal Gastrointestinal: Reports abdominal pain (Epigastric pain), Denies melena, Denies hematochezia, Denies coffee ground emesis, Denies constipation and Denies vomiting Genitourinary Genitourinary: Denies dysuria Genitourinary: Denies dysuria Musculoskeletal Musculoskeletal: Denies arthralgias and Denies myalgias Integumentary/Breasts Skin/Breast: Denies lesions and Denies rash Neurologic Neurologic: Denies behavioral changes and Denies headache(s) Psychiatric Psychiatric: Denies behavioral changes Hematologic/Lymphatic On Anticoagulants: No Allergic/Immunologic Allergic/Immunologic: Denies urticaria Patient History Medical History GERD (gastroesophageal reflux disease) Hypertension Social History Smoking Status: Unknown if ever smoked Smoking Status: Unknown if ever smoked alcohol intake frequency: 0-2 drinks per day Substance Use Type: does not use Exam Initial Vital Signs Initial Vital Signs: Vital Signs Pulse Rate 47 L 04/14/20 22:25 Respiratory Rate 18 04/14/20 22:25 Blood Pressure 135/61 04/14/20 22:25 Pulse Oximetry 98 04/14/20 22:25 Const General: cooperative, comfortable and well developed Limitations: mental status not altered [facility] Head: normal to inspection and normocephalic Resp Effort & Inspection: normal respiratory effort Auscultation: clear to auscultation bilaterally Cardio Rate: regular rate Rhythm: regular rhythm GI Inspection: non-distended Palpation: soft, No firm and No tender Rectal Exam: heme negative stool Skin Lesions: no lesions Rashes: no rashes Neuro General: patient alert and patient awake Cognition: normal cognition Speech: speech normal Extrem General: normal to inspection and capillary refill normal Psych Appearance: grossly normal and well kempt Scores [facility] [place] coma scale eye opening: Spontaneous [place] coma scale verbal response: Orientated [place] coma scale motor response: Obey commands [place] coma scale total score: 15 Course Orders Ordered: ED Orders 04/14/20 22:05 XR chest 1V Stat EKG-12 Lead Stat 04/14/20 22:10 Complete Blood Count AUTO DIFF Stat Comprehensive Metabolic Panel Stat Lipase Stat Partial Thromboplastin Time Stat Prothrombin Time INR Stat Troponin & CK Cardiac Panel Stat 04/14/20 23:43 CT angio chest abdomen pelvis Stat 04/15/20 01:15 COVID19 Stat Hemoglobin and Hematocrit Stat Troponin & CK Cardiac Panel Stat 04/15/20 01:26 Thyroid Stimulating Hormone Stat Pantoprazole Sodium 80 mg/ (Sodium Chloride) 100 mls @ 10 mls/hr IV CONT ROXANNE Last Admin: 04/15/20 01:48 Dose: 8 mg/hr, 10 mls/hr Documented by: Discontinued Medications Atropine Sulfate (Atropine 1 Mg/10 Ml Syringe) 0.5 mg IV NOW ONE Stop: 04/14/20 23:44 Last Admin: 04/14/20 23:43 Dose: 0.5 mg Documented by: ALAN Al Hydrox/Mg Hydrox/Simethicone 20 ml/ Lidocaine HCl 15 ml 0 ml PO NOW ONE Stop: 04/14/20 22:24 Last Admin: 04/14/20 22:33 Dose: 20 ml Documented by: BERNA Sodium Chloride (Normal Saline 0.9%) 1,000 mls @ 500 mls/hr IV BOLUS ONE Stop: 04/15/20 02:06 Last Admin: 04/15/20 00:25 Dose: 500 mls/hr Documented by: ALAN Morphine Sulfate (Morphine 2 Mg/Ml Inj) 2 mg IV NOW ONE Stop: 04/15/20 01:15 Last Admin: 04/15/20 01:18 Dose: 2 mg Documented by: ALAN Ondansetron HCl (Ondansetron 4 Mg/2 Ml Inj) 4 mg IV NOW ONE Stop: 04/14/20 22:37 Last Admin: 04/14/20 22:39 Dose: 4 mg Documented by: BERNA Pantoprazole Sodium (Pantoprazole 40 Mg Vial) 40 mg IV NOW ONE Stop: 04/14/20 22:24 Last Admin: 04/14/20 22:33 Dose: 40 mg Documented by: BERNA Pantoprazole Sodium (Pantoprazole 40 Mg Vial) 80 mg IV NOW ONE Stop: 04/15/20 01:00 Last Admin: 04/15/20 02:19 Dose: Not Given Documented by: Pantoprazole Sodium (Pantoprazole 40 Mg Vial) 80 mg IV NOW ONE Stop: 04/15/20 01:34 Last Admin: 04/15/20 01:48 Dose: Not Given Documented by: Vital Signs Vital signs: Vital Signs - 8 hr 04/14/20 22:25 04/14/20 22:36 04/14/20 23:36 Temperature 97.9 F Pulse Rate 47 L 58 L 35 L Respiratory Rate 18 21 22 Blood Pressure 135/61 135/61 106/55 L Pulse Oximetry 98 98 99 04/14/20 23:42 04/14/20 23:48 04/15/20 00:03 Temperature Pulse Rate 31 L 60 69 Respiratory Rate 26 H 30 H 28 H Blood Pressure 105/53 L 136/63 147/67 H Pulse Oximetry 100 97 98 04/15/20 00:30 Temperature Pulse Rate 66 Respiratory Rate 31 H Blood Pressure Pulse Oximetry 98 Medical Decision Making Medical Records Medical records reviewed: Yes I reviewed the patient's medical records. Lab Data Lab results reviewed: Yes I reviewed the patient's lab results. Result diagrams: 04/15/20 01:25 04/14/20 22:10 Labs: Lab Results 04/14/20 04/14/20 04/14/20 Range/Units 22:10 22:10 22:10 WBC 5.1 (4.5-11.0) X10^3/uL RBC 4.08 (4.0-5.2) X10^6/uL Hgb 12.4 (12.0-16.0) g/dL Hct 37.3 (36-46) % MCV 91.2 (80-100) fL MCH 30.4 (26-34) PG MCHC 33.3 (30-36) % RDW 12.9 (11.6-14.8) % Plt Count 190 (150-400) X10^3/uL Neut % (Auto) 48.2 L (50-75) % Lymph % (Auto) 38.5 (25-40) % [place] % (Auto) 10.0 (3-14) % Eos % (Auto) 2.3 (2-4) % Baso % (Auto) 1.0 (0-2) % Neut # (Auto) 2500 (2411-6302) /uL Lymph # (Auto) 2000 (7855-0710) /uL [place] # (Auto) 500 (0-900) /uL Eos # (Auto) 100 (0-450) /uL Baso # (Auto) 0 (0-100) /uL PT 10.6 (10.1-12.7) SECONDS INR 0.9 (0.9-1.3) APTT 33 (26.4-36.2) SECONDS Sodium 137 (137-145) mmol/L Potassium 4.0 (3.4-5.1) mmol/L Chloride 103 (98-107) mmol/L Carbon Dioxide 31 (22-32) mmol/L BUN 16 (7-17) mg/dL Creatinine 0.68 (0.52-1.04) mg/dL Estimated GFR > 60.0 (>60) mL/min BUN/Creatinine Ratio 23.5 H (6-22) Glucose 102 (80-110) mg/dL Calcium 10.1 (8.4-10.2) mg/dL Total Bilirubin 0.2 (0.2-1.3) mg/dL AST 30 (14-36) IU/L ALT 16 (<35) IU/L Alkaline Phosphatase 42 (38-126) U/L Total Creatine Kinase 62 (30-135) U/L CK-MB (CK-2) TNP CK-MB (CK-2) Rel Index TNP Troponin I < 0.012 (0.01-0.034) ng/mL Total Protein 7.2 (6.3-8.2) g/dL Albumin 4.5 (3.5-5.0) g/dL Globulin 2.7 (1.7-4.1) g/dL Albumin/Globulin Ratio 1.7 (1.0-2.8) Lipase 69 (23-300) U/L TSH (0.47-4.68) uIU/mL SARS-CoV-2 (PCR) (Negative) 04/15/20 04/15/20 04/15/20 Range/Units 01:15 01:25 01:25 WBC (4.5-11.0) X10^3/uL RBC (4.0-5.2) X10^6/uL Hgb 11.8 L (12.0-16.0) g/dL Hct 35.4 L (36-46) % MCV (80-100) fL MCH (26-34) PG MCHC (30-36) % RDW (11.6-14.8) % Plt Count (150-400) X10^3/uL Neut % (Auto) (50-75) % Lymph % (Auto) (25-40) % [place] % (Auto) (3-14) % Eos % (Auto) (2-4) % Baso % (Auto) (0-2) % Neut # (Auto) (6255-4339) /uL Lymph # (Auto) (2052-3066) /uL [place] # (Auto) (0-900) /uL Eos # (Auto) (0-450) /uL Baso # (Auto) (0-100) /uL PT (10.1-12.7) SECONDS INR (0.9-1.3) APTT (26.4-36.2) SECONDS Sodium (137-145) mmol/L Potassium (3.4-5.1) mmol/L Chloride (98-107) mmol/L Carbon Dioxide (22-32) mmol/L BUN (7-17) mg/dL Creatinine (0.52-1.04) mg/dL Estimated GFR (>60) mL/min BUN/Creatinine Ratio (6-22) Glucose (80-110) mg/dL Calcium (8.4-10.2) mg/dL Total Bilirubin (0.2-1.3) mg/dL AST (14-36) IU/L ALT (<35) IU/L Alkaline Phosphatase (38-126) U/L Total Creatine Kinase 51 (30-135) U/L CK-MB (CK-2) TNP CK-MB (CK-2) Rel Index TNP Troponin I < 0.012 (0.01-0.034) ng/mL Total Protein (6.3-8.2) g/dL Albumin (3.5-5.0) g/dL Globulin (1.7-4.1) g/dL Albumin/Globulin Ratio (1.0-2.8) Lipase (23-300) U/L TSH (0.47-4.68) uIU/mL SARS-CoV-2 (PCR) Negative (Negative) 04/15/20 Range/Units 01:25 WBC (4.5-11.0) X10^3/uL RBC (4.0-5.2) X10^6/uL Hgb (12.0-16.0) g/dL Hct (36-46) % MCV (80-100) fL MCH (26-34) PG MCHC (30-36) % RDW (11.6-14.8) % Plt Count (150-400) X10^3/uL Neut % (Auto) (50-75) % Lymph % (Auto) (25-40) % [place] % (Auto) (3-14) % Eos % (Auto) (2-4) % Baso % (Auto) (0-2) % Neut # (Auto) (6347-2712) /uL Lymph # (Auto) (0889-7583) /uL [place] # (Auto) (0-900) /uL Eos # (Auto) (0-450) /uL Baso # (Auto) (0-100) /uL PT (10.1-12.7) SECONDS INR (0.9-1.3) APTT (26.4-36.2) SECONDS Sodium (137-145) mmol/L Potassium (3.4-5.1) mmol/L Chloride (98-107) mmol/L Carbon Dioxide (22-32) mmol/L BUN (7-17) mg/dL Creatinine (0.52-1.04) mg/dL Estimated GFR (>60) mL/min BUN/Creatinine Ratio (6-22) Glucose (80-110) mg/dL Calcium (8.4-10.2) mg/dL Total Bilirubin (0.2-1.3) mg/dL AST (14-36) IU/L ALT (<35) IU/L Alkaline Phosphatase (38-126) U/L Total Creatine Kinase (30-135) U/L CK-MB (CK-2) CK-MB (CK-2) Rel Index Troponin I (0.01-0.034) ng/mL Total Protein (6.3-8.2) g/dL Albumin (3.5-5.0) g/dL Globulin (1.7-4.1) g/dL Albumin/Globulin Ratio (1.0-2.8) Lipase (23-300) U/L TSH 2.32 (0.47-4.68) uIU/mL SARS-CoV-2 (PCR) (Negative) Imaging Data Chest x-ray: Radiologist's Impression: Preliminary read No acute findings CT chest abdomen pelvis: Radiologist's Impression: No dissection or other acute findings ECG Data Attestation: I personally reviewed and interpreted this ECG as follows: Prior ECG tracings: not available for review Interpretation: Sinus bradycardia Ventricular rate of 50 Normal axis Normal QRS Normal QTC No ST T wave changes Repeat EKG the time of bradycardia Sinus bradycardia Ventricular rate of 28 Normal axis Normal QRS Normal QTC MDM Narrative Medical decision making narrative: Patient arrived with epigastric discomfort that she states feels very similar to her prior history of reflux disease although since her symptoms were not improving she was concerned about her heart so she came to the emergency department for evaluation. Initial EKG is nonischemic. She states that her heart rate is normally in the 50s or 60s. Was given Protonix and a GI cocktail which she states only improved her symptoms a small amount. During her observation time here in the emergency department she had an episode she became bradycardic. Heart rate dropped to the 20s. Systolic blood pressure dropped to the low 100s with a diastolic in the 50s. Her mean arterial pressure of the time was greater than 65. We were able to catch this on an EKG. This was a sinus bradycardia without any signs of heart block. She was given atropine which did improve her heart rate and her blood pressure. During the time of bradycardia she did report a worsening of her chest discomfort and also is having nausea. CT scan chest abdomen pelvis was ordered for dissection. Preliminary read shows no acute pathology. I did discuss the case with cardiology who stated that the symptoms sounded more like a vagal response rather than coronary artery disease. Repeat H&H does show a slight drop. She was given Protonix. Discussed the case with Dr. Torres with Internal Medicine who accepts patient in transfer. I did discuss all this with the patient's and her an expressed understanding and agreement. Patient is stable for transfer. Discharge Plan Departure Patient Disposition: [facility] Clinical Impression: Chest pain, Bradycardia Prescriptions: No Action CALCIUM CITRATE/VITAMIN D3 (Calcitrate + Vit D Caplet) 2 tab PO QDAY Qty: 0 RF: 0 melatonin 3 MG tablet 5 mg PO HS Qty: 0 RF: 0 fexofenadine 180 MG tablet 90 mg PO QDAY Qty: 0 RF: 0 simvastatin [Zocor] 20 MG tablet 20 mg HS Qty: 0 RF: 0 losartan 25 MG tablet 50 mg PO QDAY Qty: 0 RF: 0 COENZYME Q10/VITAMIN E (CO-Q-10 100mg) Q DAY Qty: 0 RF: 0 magnesium amino acid chelate 100 MG tablet 125 mg PO QDAY Qty: 0 RF: 0 calcium carbonate [Tums] 500 MG tablet,chewable 500 mg PO PRN PRNQty: 0 RF: 0 estradiol [Estrace] 0.01 % cream 1 gm Vaginal PRN PRNQty: 1 RF: 3 anastrozole 1 MG tablet 1 mg PO QDAY Qty: 90 RF: 2 Referrals: Anyi Pérez PA-C [Primary Care Provider] -
--- NOTE | 2020-04-14 22:05 | DI.RAD.S_ITS ---
PROCEDURE: XR CHEST 1V INDICATIONS: chest pain TECHNIQUE: One view of the chest was acquired. COMPARISON: [facility], CR, XR CHEST 1V, 02/19/2019, 19:52. FINDINGS: Surgical changes and devices: None. Lungs and pleura: Lungs are clear. No pleural effusions or pneumothorax. Mediastinum: Mediastinal contours appear normal. Heart size is normal. Bones and chest wall: No suspicious bony lesions. Overlying soft tissues appear unremarkable. IMPRESSION: No acute cardiopulmonary disease. No significant discrepancy with the night patrol inspector radiology preliminary report. Dictated by: Mary Cuello M.D. on 04/15/2020 at 8:45 Approved by: Mary Cuello M.D. on 04/15/2020 at 8:45
[2020-04-14 22:20] LABS: Add Manual Diff / Slide Review NO; Basophils Absolute Auto 0 /uL (0-100); Eosinophils Absolute Auto 100 /uL (0-450); Eosinophils Percent Auto 2.3 % (2-4); Hematocrit 37.3 % (36-46); Hemoglobin 12.4 g/dL (12.0-16.0); Lymphocytes Absolute Auto 2000 /uL (1100-4500); Lymphocytes Percent Auto 38.5 % (25-40); Mean Corpuscular HGB Conc 33.3 % (30-36); Mean Corpuscular Hemoglobin 30.4 PG (26-34); Mean Corpuscular Volume 91.2 fL (80-100); Monocytes Absolute Auto 500 /uL (0-900); Neutrophils Absolute Auto 2500 /uL (1500-7000); Neutrophils Percent Auto 48.2 % (50-75); Platelet Count 190 X10^3/uL (150-400); Red Blood Cell Count 4.08 X10^6/uL (4.0-5.2); Red Cell Distribution Width 12.9 % (11.6-14.8); White Blood Cell Count 5.1 X10^3/uL (4.5-11.0)
[2020-04-14 22:25] VITALS: BP 135/61; PULSE 47; RESP 18; O2SAT 98
[2020-04-14 22:30] LABS: Alanine Aminotransferase 16 IU/L (<35); Albumin 4.5 g/dL (3.5-5.0); Albumin Globulin Ratio 1.7 (1.0-2.8); Alkaline Phosphatase 42 U/L (38-126); Aspartate Aminotransferase 30 IU/L (14-36); BUN Creatinine Ratio 23.5 (6-22); Bilirubin Total 0.2 mg/dL (0.2-1.3); Blood Urea Nitrogen 16 mg/dL (7-17); Calcium 10.1 mg/dL (8.4-10.2); Carbon Dioxide 31 mmol/L (22-32); Chloride 103 mmol/L (98-107); Creatine Kinase 62 U/L (30-135); Estimated Glomerular Filt Rate > 60.0 mL/min (>60); Globulin 2.7 g/dL (1.7-4.1); Glucose 102 mg/dL (80-110); HEMOLYSIS 17 (0-50); Lipase 69 U/L (23-300); Sodium 137 mmol/L (137-145); Total Protein 7.2 g/dL (6.3-8.2)
[2020-04-14 22:31] LABS: INR 0.9 (0.9-1.3); PTT Partial Thromboplastin Tim 33 SECONDS (26.4-36.2); Prothrombin Time 10.6 SECONDS (10.1-12.7)
[2020-04-14] MEDS: PANTOPRAZOLE 40 MG VIAL IV (22:33)
[2020-04-14] MEDS: MAG HYDROX/ALUMINUM/SIMETH SUS 20 ML, LIDOCAINE VISCOUS 2% 15 ML PO (22:33)
[2020-04-14 22:36] VITALS: BP 135/61; PULSE 58; RESP 21; TEMP 36.6; O2SAT 98
[2020-04-14] MEDS: ONDANSETRON 4 MG/2 ML INJ IV (22:39)
[2020-04-14 22:42] LABS: Troponin I < 0.012 ng/mL (0.01-0.034)
[2020-04-14 23:36] VITALS: BP 106/55; PULSE 35; RESP 22; O2SAT 99
--- NOTE | 2020-04-14 23:36 | PC.NURSE ---
Pt noted with HR 35 on cleaner greaser, pt reporting CP 09/16. She stated she had some relief after GI cocktail, but now pain is back. Will do EKG, notify Dr Liao.
[2020-04-14 23:42] VITALS: BP 105/53; PULSE 31; RESP 26; O2SAT 100
[2020-04-14] MEDS: ATROPINE 1 MG/10 ML SYRINGE 0.5 MG IV (23:43)
--- NOTE | 2020-04-14 23:43 | DI.CT.S_ITS ---
PROCEDURE: CT ANGIO CHEST ABDOMEN PELVIS INDICATIONS: bradycardia, Eval for dissection TECHNIQUE: Precontrast 5 mm thick sections acquired from the lung apices to the iliac crests. After the administration of intravenous contrast, 2.5 mm thick sections again acquired from the lung apices to the iliac crests. Maximum intensity projection (MIP) oblique sagittal and coronal reformats were then acquired. For radiation dose reduction, the following was used: automated exposure control. COMPARISON: None. FINDINGS: Image quality: Excellent. AORTA: Aorta is normal in caliber. No dissection. Mild atherosclerotic calcification. CHEST: Lungs and pleura: No acute airspace opacities. There are several pulmonary nodules as listed below: Nodule 1: 3 mm; left lower lobe; series 6 image 255. Nodule 2: 4 mm; left major fissure; series 6, image 158. Nodules 3: 6 mm; right lower lobe; series 6 image 165. No pleural effusions or pneumothorax. Central and peripheral airways are patent and normal in caliber. Mediastinum: Heart size is normal. No pericardial effusion. There are moderate coronary artery calcification. No mediastinal or hilar adenopathy by size criteria. Central pulmonary arteries are normal in size. Esophagus is normal in caliber. Small hiatal hernias. Bones and chest wall: Surgical clips in the left breast. No axillary adenopathy by size criteria. Thyroid gland is normal . No suspicious bony lesions. No vertebral body compression fractures. ABDOMEN: Vasculature: Celiac trunk and mesenteric arteries are patent. Renal arteries are also patent. Solid organs: Liver is normal in size and enhancement. Gallbladder is normal. Biliary system is non dilated. Pancreas enhances normally. Spleen is normal in size and enhancement. No adrenal nodules. Both kidneys are normal in size and enhancement, without hydronephrosis. Peritoneum and bowel: No free fluid or air. Bowel loops are normal in caliber and wall thickness. Nodes and vessels: No retroperitoneal or mesenteric adenopathy by size criteria. Inferior vena cava is normal in morphology. Miscellaneous: No ventral hernias. PELVIS: Genitourinary: Bladder wall thickness is normal. Miscellaneous: No inguinal hernias or adenopathy. No ventral hernias. Bones: No suspicious bony lesions. No vertebral body compression fractures. Scoliosis and degenerative changes in thoracic and lumbar spine. IMPRESSION: 1. Normal caliber of aorta without dissection. 2. Mild atherosclerotic calcification of aorta. 3. Moderate coronary artery calcification. 4. Multiple small lung nodules bilaterally as described. Please see enclosed follow-up recommendation. Fleischner Society criteria for SOLID lung nodule followup. Nodule size (mm)Low-risk patientHigh-risk patient?4No follow-up neededFollow-up at 12 mo; if no change, no further follow-up>[id number] CT at 12 mo; if no change, no further follow-up needed.Initial follow-up CT at 6-12 mo, then 18-24 mo if no change. >6-8Initial follow-up CT at 6-12 mo, then 18-24 mo if no change. Initial follow-up CT at 3-6 mo, then 9-12 mo and 24 mo if no change. >8Follow-up CT at 3, 9, 24 mo. Or PET and/or biopsy.Same as for low-risk pts. No significant discrepancy with the shift nurse manager radiology preliminary report. Dictated by: Mary Cuello M.D. on 04/15/2020 at 8:32 Approved by: Mary Cuello M.D. on 04/15/2020 at 8:44
[2020-04-14 23:48] VITALS: BP 136/63; PULSE 60; RESP 30; O2SAT 97
--- NOTE | 2020-04-14 23:50 | PC.NURSE ---
HR decreased to 28, pt c/o chest pain and nausea. Dr Liao called to bedside, 12 lead complete. Verbal order for 0.5mg atropine received and given, HR increased to 70's, pt reported immediate relief. 2nd PIV placed. Pt now to CT with RN at bedside.
[2020-04-15] VITALS (11 sets, daily range): BP systolic 106–147; BP diastolic 51–67; PULSE 51–69; RESP 16–35; O2SAT 94–98
[2020-04-15] MEDS: SODIUM CHLORIDE 0.9% 1,000 ML 500 ML IV (00:25)
[2020-04-15] MEDS: MORPHINE 2 MG/ML INJ IV (01:18)
[2020-04-15 01:33] LABS: COVID19 -Nasal RAPID Negative (Negative)
[2020-04-15 01:37] LABS: Hematocrit 35.4 % (36-46); Hemoglobin 11.8 g/dL (12.0-16.0)
[2020-04-15 01:47] LABS: Creatine Kinase 51 U/L (30-135)
[2020-04-15] MEDS: PANTOPRAZOLE 80 MG in SODIUM CHLORIDE 0.9% 100 ML 10 ML IV (01:48)
[2020-04-15 02:00] LABS: Troponin I < 0.012 ng/mL (0.01-0.034)
[2020-04-15 02:18] LABS: Thyroid Stimulating Hormone 2.32 uIU/mL (0.47-4.68)
== END 2020-04-15 03:56 | disposition short-term general hospital (02) ==
PROVIDERS: Emergency Provider Emergency Medicine; PCP Student in an Organized Health Care Education/Training Program
DX: R07.9 Chest pain, unspecified (principal); R00.1 Bradycardia, unspecified; R10.13 Epigastric pain; Z20.822 Contact with and (suspected) exposure to COVID-19
CPT/HCPCS: 36415; 71045; 71275; 74174; 80053; 82550; 83690; 84443; 84484; 85014; 85018; 85025; 85610; 85730; 87635; 93005; 96361; 96365; 96366; 96375; 99284; 99291; 99292; C9803; C9113; J0461; J2270; J2405; Q9967

== ENCOUNTER 2020-06-21 22:59 | Emergency (ER) | payer OTHER, SELFPAY ==
[2020-06-21 23:07] VITALS: PULSE 53; O2SAT 100
[2020-06-21 23:08] VITALS: BP 166/73; PULSE 56; O2SAT 100
[2020-06-21 23:10] VITALS: BP 166/73; PULSE 63; RESP 17; TEMP 36.9; O2SAT 100; BMI 24.5
[2020-06-21] MEDS: MAG HYDROX/ALUMINUM/SIMETH SUS 20 ML, LIDOCAINE VISCOUS 2% 15 ML PO (23:20)
[2020-06-21] MEDS: PANTOPRAZOLE 40 MG VIAL IV (23:20)
--- NOTE | 2020-06-21 23:20 | ED.CHESTPAIN ---
HPI - Chest Pain General Chief Complaint: Chest Pain Stated Complaint: heart burn past couple of days Time Seen by Provider: 06/21/20 23:03 Source: patient Mode of arrival: Ambulatory Limitations: no limitations History of Present Illness HPI narrative: Patient is a 72-year-old female who arrives emergency department with her for evaluation of which he states his epigastric abdominal pain and reflux disease. Patient states that she has had a history of reflux in the past. Approximately 2 months ago she was seen here in this emergency department by myself for very similar symptoms. During that time she was given medications and was also found to have symptomatic bradycardia. She was transferred to another facility where she continue to receive IV proton pump inhibitor and also was evaluated by Cardiology. It was determined that bradycardia was most likely a vasovagal reaction secondary to a gastritis. According to the notes her symptoms improved and she was discharged home with 1 month of a PPI which she completed about 1 month ago. The symptoms that she came in with today started yesterday. She took a opioid pain medication last evening and had some improvement of the symptoms however returned today. This was the 1st episode she has had epigastric pain since her last visit 2 months ago. Related Data Home Medications Medication Instructions Recorded Confirmed CALCIUM CITRATE/VITAMIN D3 2 tab PO QDAY #0 07/12/12 (Calcitrate + Vit D Caplet) COENZYME Q10/VITAMIN E (CO-Q-10 Q DAY #0 10/02/12 100mg) fexofenadine 90 mg PO QDAY #0 10/02/12 losartan 50 mg PO QDAY #0 10/02/12 melatonin 5 mg PO HS #0 10/02/12 simvastatin [Zocor] 20 mg HS #0 10/02/12 calcium carbonate [Tums] 500 mg PO PRN PRN #0 06/25/16 magnesium amino acid chelate 125 mg PO QDAY #0 06/25/16 Previous Rx's Medication Instructions Recorded estradiol [Estrace] 1 gm VAGINAL PRN PRN #1 tube 06/25/16 anastrozole 1 mg PO QDAY #90 tab 07/11/17 pantoprazole 20 mg PO DAILY #30 tab 06/22/20 Allergies Allergy/AdvReac Type Severity Reaction Status Date / Time lisinopril [LISINOPRIL] Allergy Mild Cough Verified 11/25/18 23:40 lorazepam [LORAZEPAM] AdvReac Unknown DEPRESSION Verified 11/25/18 23:40 BRAZIL NUT Allergy Unknown Uncoded 05/18/17 12:19 Review of Systems Constitutional Constitutional: Denies fever(s) Cardiovascular Cardiovascular: Denies chest pain and Denies dyspnea Respiratory Respiratory: Denies dyspnea Gastrointestinal Gastrointestinal: Reports abdominal pain, Denies melena, Denies change in bowel habits, Denies coffee ground emesis, Reports nausea and Denies vomiting Genitourinary Genitourinary: Denies dysuria Genitourinary: Denies dysuria Musculoskeletal Musculoskeletal: Reports system reviewed and no additional complaints, except as documented Integumentary/Breasts Skin/Breast: Reports system reviewed and no additional complaints, except as documented Neurologic Neurologic: Reports system reviewed and no additional complaints, except as documented Hematologic/Lymphatic On Anticoagulants: No Allergic/Immunologic Allergic/Immunologic: Reports system reviewed and no additional complaints, except as documented Patient History Medical History GERD (gastroesophageal reflux disease) Hypertension Social History Smoking Status: Unknown if ever smoked Smoking Status: Unknown if ever smoked alcohol intake frequency: 0-2 drinks per day Substance Use Type: does not use Exam Initial Vital Signs Initial Vital Signs: Vital Signs Pulse Rate 53 L 06/21/20 23:07 Pulse Oximetry 100 06/21/20 23:07 Const General: cooperative and comfortable Limitations: mental status not altered HENMT Head: normal to inspection and normocephalic Resp Effort & Inspection: normal respiratory effort Auscultation: clear to auscultation bilaterally Cardio Rate: bradycardic Rhythm: regular rhythm Pulses: radial pulses present GI Inspection: non-distended Palpation: soft, No firm and tender (Epigastric region) Skin Lesions: no lesions Rashes: no rashes Neuro General: patient alert, patient awake and patient oriented x3 Cognition: normal cognition Speech: speech normal Extrem General: normal to inspection and capillary refill normal Psych Appearance: grossly normal and well kempt Course Orders Ordered: ED Orders 06/21/20 23:03 EKG-12 Lead Stat 06/21/20 23:15 Complete Blood Count AUTO DIFF Stat Comprehensive Metabolic Panel Stat Lipase Stat Troponin & CK Cardiac Panel Stat Discontinued Medications Al Hydrox/Mg Hydrox/Simethicone 20 ml/ Lidocaine HCl 15 ml 0 ml PO NOW ONE Stop: 05/15/21 23:04 Last Admin: 06/21/20 23:20 Dose: 20 ml Documented by: LORI Ondansetron HCl (Ondansetron 4 Mg/2 Ml Inj) 4 mg IV NOW ONE Stop: 06/21/20 23:21 Last Admin: 06/21/20 23:29 Dose: 4 mg Documented by: LORI Pantoprazole Sodium (Pantoprazole 40 Mg Vial) 40 mg IV NOW ONE Stop: 06/21/20 23:04 Last Admin: 06/21/20 23:20 Dose: 40 mg Documented by: LORI Vital Signs Vital signs: Vital Signs - 8 hr 06/21/20 23:07 06/21/20 23:08 06/21/20 23:10 Temperature 98.4 F Pulse Rate 53 L 56 L 63 Respiratory Rate 17 Blood Pressure 166/73 H 166/73 H Pulse Oximetry 100 100 100 06/21/20 23:30 06/21/20 23:31 06/22/20 00:00 Temperature Pulse Rate 47 L 47 L 36 L Respiratory Rate 16 20 19 Blood Pressure 151/63 H Pulse Oximetry 100 99 97 06/22/20 00:01 06/22/20 00:30 06/22/20 00:31 Temperature Pulse Rate 37 L 38 L 39 L Respiratory Rate 19 16 Blood Pressure 105/51 L 121/54 L Pulse Oximetry 97 96 95 MDM - Chest Pain Medical Records Data Attestation: I reviewed the patient's medical records. Lab Data Attestation: I reviewed the patient's lab results. Result diagrams: 06/21/20 23:15 06/21/20 23:15 Labs: Lab Results 06/21/20 06/21/20 Range/Units 23:15 23:15 WBC 5.8 (4.5-11.0) X10^3/uL RBC 3.85 L (4.0-5.2) X10^6/uL Hgb 11.7 L (12.0-16.0) g/dL Hct 34.8 L (36-46) % MCV 90.5 (80-100) fL MCH 30.5 (26-34) PG MCHC 33.7 (30-36) % RDW 12.5 (11.6-14.8) % Plt Count 209 (150-400) X10^3/uL Neut % (Auto) 57.7 (50-75) % Lymph % (Auto) 30.3 (25-40) % [place] % (Auto) 9.5 (3-14) % Eos % (Auto) 1.8 L (2-4) % Baso % (Auto) 0.7 (0-2) % Neut # (Auto) 3300 (5244-1456) /uL Lymph # (Auto) 1700 (8014-3397) /uL [place] # (Auto) 600 (0-900) /uL Eos # (Auto) 100 (0-450) /uL Baso # (Auto) 0 (0-100) /uL Sodium 137 (137-145) mmol/L Potassium 4.0 (3.4-5.1) mmol/L Chloride 103 (98-107) mmol/L Carbon Dioxide 27 (22-32) mmol/L BUN 20 H (7-17) mg/dL Creatinine 0.69 (0.52-1.04) mg/dL Estimated GFR > 60.0 (>60) mL/min BUN/Creatinine Ratio 29.0 H (6-22) Glucose 111 H (80-110) mg/dL Calcium 10.0 (8.4-10.2) mg/dL Total Bilirubin 0.2 (0.2-1.3) mg/dL AST 33 (14-36) IU/L ALT 17 (<35) IU/L Alkaline Phosphatase 44 (38-126) U/L Total Creatine Kinase 57 (30-135) U/L CK-MB (CK-2) TNP CK-MB (CK-2) Rel Index TNP Troponin I < 0.012 (0.01-0.034) ng/mL Total Protein 7.3 (6.3-8.2) g/dL Albumin 4.3 (3.5-5.0) g/dL Globulin 3.0 (1.7-4.1) g/dL Albumin/Globulin Ratio 1.4 (1.0-2.8) Lipase 190 (23-300) U/L ECG Data Attestation: I personally reviewed and interpreted this ECG as follows: Prior ECG tracings: not available for review Interpretation: Sinus bradycardia Ventricular rate of 49 Normal axis Normal QRS Normal QTC No ST T wave changes MDM Narrative Medical decision making narrative: Patient's presentation today is very similar to her presentation 2 months ago when I evaluated her and eventually transferred her for symptomatic bradycardia. It was felt that this was a vasovagal issue. No pacemaker was placed. Today is the 1st recurrence of her symptoms since that event 2 months ago. Her EKG today does show a sinus bradycardia. She is asymptomatic from this. She is not hypotensive. Not lightheaded. No chest pain. She did report improvement of her epigastric symptoms with the treatments provided here in the emergency department. She is afebrile. Her LFTs and lipase are unremarkable. Troponin is negative. I do have a high suspicion that her symptoms are GI related. The plan will be is to start her back on her PPI. She will contact her primary doctor and also the general surgery clinic to discuss the indications for a scope. She is asymptomatic from her bradycardia however she was given strict return precautions regarding this. Patient and her who is at bedside expressed understanding and agreement this plan. Discharge Plan Departure Patient Disposition: Home Clinical Impression: Epigastric pain, Bradycardia Instructions: DI for Gastroesophageal Reflux Disease (GERD) Activity Restrictions/Additional Instructions: Recommend that you start taking the new medication called pantoprazole as directed. This was electronically transmitted to [employer]. I also recommend on Tuesday you contact your primary doctor. Also contact the [facility] at [phone]. I do recommend you contact them to discuss the indications for an endoscopy. Return to the emergency department for any new or worsening symptoms Prescriptions: New pantoprazole 20 mg tablet,delayed release (DR/EC) 20 mg PO DAILY Qty: 30 RF: 3 No Action CALCIUM CITRATE/VITAMIN D3 (Calcitrate + Vit D Caplet) 2 tab PO QDAY Qty: 0 RF: 0 melatonin 3 MG tablet 5 mg PO HS Qty: 0 RF: 0 fexofenadine 180 MG tablet 90 mg PO QDAY Qty: 0 RF: 0 simvastatin [Zocor] 20 MG tablet 20 mg HS Qty: 0 RF: 0 losartan 25 MG tablet 50 mg PO QDAY Qty: 0 RF: 0 COENZYME Q10/VITAMIN E (CO-Q-10 100mg) Q DAY Qty: 0 RF: 0 magnesium amino acid chelate 100 MG tablet 125 mg PO QDAY Qty: 0 RF: 0 calcium carbonate [Tums] 500 MG tablet,chewable 500 mg PO PRN PRNQty: 0 RF: 0 estradiol [Estrace] 0.01 % cream 1 gm Vaginal PRN PRNQty: 1 RF: 3 anastrozole 1 MG tablet 1 mg PO QDAY Qty: 90 RF: 2 Referrals: Anyi Pérez PA-C [Primary Care Provider] -
[2020-06-21 23:25] LABS: Add Manual Diff / Slide Review NO; Basophils Absolute Auto 0 /uL (0-100); Basophils Percent Auto 0.7 % (0-2); Eosinophils Absolute Auto 100 /uL (0-450); Eosinophils Percent Auto 1.8 % (2-4); Hematocrit 34.8 % (36-46); Hemoglobin 11.7 g/dL (12.0-16.0); Lymphocytes Absolute Auto 1700 /uL (1100-4500); Lymphocytes Percent Auto 30.3 % (25-40); Mean Corpuscular HGB Conc 33.7 % (30-36); Mean Corpuscular Hemoglobin 30.5 PG (26-34); Mean Corpuscular Volume 90.5 fL (80-100); Monocytes Absolute Auto 600 /uL (0-900); Monocytes Percent Auto 9.5 % (3-14); Neutrophils Absolute Auto 3300 /uL (1500-7000); Neutrophils Percent Auto 57.7 % (50-75); Platelet Count 209 X10^3/uL (150-400); Red Blood Cell Count 3.85 X10^6/uL (4.0-5.2); Red Cell Distribution Width 12.5 % (11.6-14.8); White Blood Cell Count 5.8 X10^3/uL (4.5-11.0)
[2020-06-21] MEDS: ONDANSETRON 4 MG/2 ML INJ IV (23:29)
[2020-06-21 23:30] VITALS: PULSE 47; RESP 16; O2SAT 100
[2020-06-21 23:31] VITALS: BP 151/63; PULSE 47; RESP 20; O2SAT 99
[2020-06-21 23:36] LABS: Alanine Aminotransferase 17 IU/L (<35); Albumin 4.3 g/dL (3.5-5.0); Albumin Globulin Ratio 1.4 (1.0-2.8); Alkaline Phosphatase 44 U/L (38-126); Aspartate Aminotransferase 33 IU/L (14-36); Bilirubin Total 0.2 mg/dL (0.2-1.3); Blood Urea Nitrogen 20 mg/dL (7-17); Carbon Dioxide 27 mmol/L (22-32); Chloride 103 mmol/L (98-107); Creatine Kinase 57 U/L (30-135); Estimated Glomerular Filt Rate > 60.0 mL/min (>60); Glucose 111 mg/dL (80-110); HEMOLYSIS < 15 (0-50); Lipase 190 U/L (23-300); Sodium 137 mmol/L (137-145); Total Protein 7.3 g/dL (6.3-8.2)
[2020-06-21 23:47] LABS: Troponin I < 0.012 ng/mL (0.01-0.034)
[2020-06-22] VITALS: PULSE 36; RESP 19; O2SAT 97
[2020-06-22 00:01] VITALS: BP 105/51; PULSE 37; O2SAT 97
[2020-06-22 00:30] VITALS: PULSE 38; RESP 19; O2SAT 96
[2020-06-22 00:31] VITALS: BP 121/54; PULSE 39; RESP 16; O2SAT 95
== END 2020-06-22 01:10 | disposition home or self-care (01) ==
PROVIDERS: Emergency Provider Emergency Medicine; PCP Student in an Organized Health Care Education/Training Program
DX: R10.13 Epigastric pain (principal); R00.1 Bradycardia, unspecified; R11.0 Nausea
CPT/HCPCS: 36415; 80053; 82550; 83690; 84484; 85025; 93005; 93010; 96374; 96375; 99284; C9113; J2405

== ENCOUNTER 2021-11-02 00:11 | Emergency (ER) | payer OTHER, SELFPAY ==
[2021-11-02] VITALS (11 sets, daily range): BP systolic 123–181; BP diastolic 59–78; PULSE 52–71; RESP 16–39; TEMP 36; O2SAT 95–100
--- NOTE | 2021-11-02 00:30 | DI.RAD.S_ITS ---
PROCEDURE: XR CHEST 1V INDICATIONS: chest pain TECHNIQUE: One view of the chest was acquired. COMPARISON: [facility], CR, XR CHEST 1V, 04/14/2020, 22:10. FINDINGS: Surgical changes and devices: None. Lungs and pleura: Lungs are clear. There is elevation of the right hemidiaphragm redemonstrated. No pleural effusions or pneumothorax. Mediastinum: Mediastinal contours appear normal. Heart size is normal. Bones and chest wall: No suspicious bony lesions. Overlying soft tissues appear unremarkable. IMPRESSION: 1. No acute cardiopulmonary disease. Dictated by: Ye Hines M.D. on 11/02/2021 at 1:19 Approved by: Ye Hines M.D. on 11/02/2021 at 1:20
[2021-11-02] MEDS: PANTOPRAZOLE 40 MG VIAL IV (00:35)
[2021-11-02 00:47] LABS: Alanine Aminotransferase 17 IU/L (<35); Albumin 4.5 g/dL (3.5-5.0); Albumin Globulin Ratio 1.4 (1.0-2.8); Alkaline Phosphatase 62 U/L (38-126); Aspartate Aminotransferase 32 IU/L (14-36); BUN Creatinine Ratio 27.9 (6-22); Bilirubin Total 0.2 mg/dL (0.2-1.3); Blood Urea Nitrogen 19 mg/dL (7-17); Calcium 10.1 mg/dL (8.4-10.2); Carbon Dioxide 28 mmol/L (22-32); Chloride 104 mmol/L (98-107); Creatine Kinase 53 U/L (30-135); Estimated Glomerular Filt Rate > 60 mL/min (>60); Globulin 3.3 g/dL (1.7-4.1); Glucose 108 mg/dL (80-110); HEMOLYSIS 31 (0-50); Lipase 97 U/L (23-300); Sodium 139 mmol/L (137-145); Total Protein 7.8 g/dL (6.3-8.2)
[2021-11-02 00:56] LABS: Add Manual Diff / Slide Review NO; Basophils Absolute Auto 0 /uL (0-100); Basophils Percent Auto 0.8 % (0-2); Eosinophils Absolute Auto 200 /uL (0-450); Eosinophils Percent Auto 2.8 % (2-4); Hematocrit 37.5 % (36-46); Hemoglobin 12.7 g/dL (12.0-16.0); Lymphocytes Absolute Auto 2000 /uL (1100-4500); Lymphocytes Percent Auto 34.9 % (25-40); Mean Corpuscular HGB Conc 33.9 % (30-36); Mean Corpuscular Hemoglobin 30.5 PG (26-34); Mean Corpuscular Volume 89.9 fL (80-100); Monocytes Absolute Auto 600 /uL (0-900); Monocytes Percent Auto 10.3 % (3-14); Neutrophils Absolute Auto 2900 /uL (1500-7000); Neutrophils Percent Auto 51.2 % (50-75); Platelet Count 210 X10^3/uL (150-400); Red Blood Cell Count 4.17 X10^6/uL (4.0-5.2); Red Cell Distribution Width 12.9 % (11.6-14.8); White Blood Cell Count 5.7 X10^3/uL (4.5-11.0)
[2021-11-02 00:59] LABS: Troponin I < 0.012 ng/mL (0.01-0.034)
--- NOTE | 2021-11-02 03:20 | ED_ITS ---
HPI - Chest Pain General Chief Complaint: Chest Pain Stated Complaint: CHEST PAIN Time Seen by Provider: 11/02/21 02:05 Source: patient Mode of arrival: Ambulatory Limitations: no limitations Limitations: no limitations History of Present Illness HPI narrative: This is a 81-year-old female with history of hypertension dyslipidemia and GERD who presents with chest pain which she describes as being epigastric radiating up a little bit to the left side of her chest. Started around 2100 this morning and ended about 2:00 a.m. patient states she is had some intermittent symptoms in the past month it is almost always at night while she is lying flat. She states it usually does not happen when she is up or moving but has had 1 or 2 episodes upright. She received Protonix which she states seemed to be helpful here. She does have lidocaine viscous at home but forgot that she had this a vailable so did not try it. Patient states she is very careful about her diet she tries to limit what she eats and follows an acid watchers diet. She has had heartburn she felt a little bit different this evening she states it was more on the left. It did not radiate anywhere. She denies shortness of breath, she would some mild nausea, no diaphoresis. No lightheadedness or passing out. She is on losartan and simvastatin. She is to be on pantoprazole but has not been taking this regularly. She is had prior appendectomy, hysterectomy no cardiac stents or interventions and multiple orthopedic surgeries. States she is allergic to lisinopril and lorazepam. No tobacco, she drinks about 1-1.5 alcoholic drinks nightly and did have an IPA beer this evening. No illicit but occasionally uses [employer] for sleep. Related Data Home Medications Medication Instructions Recorded Confirmed CALCIUM CITRATE/VITAMIN D3 2 tab PO QDAY ##0 07/12/12 (Calcitrate + Vit D Caplet) COENZYME Q10/VITAMIN E (CO-Q-10 Q DAY ##0 10/02/12 100mg) fexofenadine 180 mg tablet 90 mg PO QDAY ##0 10/02/12 losartan 25 mg tablet 50 mg PO QDAY ##0 10/02/12 melatonin 3 mg tablet 5 mg PO HS ##0 10/02/12 simvastatin 20 mg tablet (Zocor) 20 mg HS ##0 10/02/12 calcium carbonate 200 mg calcium 500 mg PO PRN PRN ##0 06/25/16 (500 mg) chewable tablet (Tums) magnesium amino acid chelate 100 125 mg PO QDAY ##0 06/25/16 mg tablet Previous Rx's Medication Instructions Recorded estradiol 0.01% (0.1 mg/gram) 1 gm vaginal PRN PRN #1 tube 06/25/16 vaginal cream (Estrace) anastrozole 1 mg tablet 1 mg PO QDAY #90 tabs 07/11/17 pantoprazole 20 mg tablet,delayed 20 mg PO DAILY #30 tabs 06/22/20 release Allergies Allergy/AdvReac Type Severity Reaction Status Date / Time lisinopril [LISINOPRIL] Allergy Mild Cough Verified 11/25/18 23:40 lorazepam [LORAZEPAM] AdvReac Unknown DEPRESSION Verified 11/25/18 23:40 BRAZIL NUT Allergy Unknown Uncoded 05/18/17 12:19 Review of Systems Review of Systems ROS Unobtainable: All systems reviewed & are unremarkable except as noted in HPI and below Patient History Medical History GERD (gastroesophageal reflux disease) Hypertension Social History Smoking Status: Unknown if ever smoked Smoking Status: Unknown if ever smoked alcohol intake frequency: 0-2 drinks per day Alcohol type: beer Substance Use Type: does not use Exam Narrative Exam Narrative: GENERAL: Alert and oriented x three, elderly female in mild distress. HEENT: Head normocephalic, atraumatic, EOMI, pupils reactive, face symmetric, moist mucous membranes NECK: Supple, full range of motion CARDIOVASCULAR: Regular rate and rhythm without murmurs, rubs or gallops. No reproducible chest pain. No JVD. RESPIRATORY: Breath sounds equal bilaterally, no wheezes rales or rhonchi. ABDOMEN: Soft, nontender. Normoactive bowel sounds all 4 quadrants. No guarding or rebound, rigidity, no mass : No CVA tenderness EXTREMITIES: Normal range of motion, no clubbing or edema. Neurovascularly intact NEUROLOGICAL: Cranial nerves II through XII grossly intact. Moving all extremities SKIN: Warm, dry, no petechiae, no rashes or lesions. Initial Vital Signs Initial Vital Signs: Vital Signs Temperature 96.8 F L 11/02/21 00:15 Pulse Rate 71 11/02/21 00:15 Respiratory Rate 16 11/02/21 00:15 Blood Pressure 181/77 H 11/02/21 00:15 Pulse Oximetry 97 11/02/21 00:15 Oxygen Delivery Method 11/02/21 00:15 Course Orders Ordered: ED Orders 11/02/21 EKG-12 Lead Routine 11/02/21 00:25 Complete Blood Count AUTO DIFF Stat Comprehensive Metabolic Panel Stat Lipase Stat Troponin & CK Cardiac Panel Stat 11/02/21 00:30 XR chest 1V Stat EKG-12 Lead Stat 11/02/21 02:35 Trop I [Troponin I] Stat Discontinued Medications Pantoprazole Sodium (Pantoprazole 40 Mg Vial) 40 mg IV NOW ONE Stop: 11/02/21 00:29 Last Admin: 11/02/21 00:35 Dose: 40 mg Documented By: TAVON Vital Signs Vital signs: Vital Signs - 8 hr 11/02/21 00:15 11/02/21 00:18 11/02/21 00:18 Temperature 96.8 F L Pulse Rate 71 64 Respiratory Rate 16 28 H Blood Pressure 181/77 H 181/77 H Pulse Oximetry 97 99 Oxygen Delivery Method Room Air 11/02/21 00:30 11/02/21 00:31 11/02/21 00:31 Temperature Pulse Rate 59 L 59 L Respiratory Rate Blood Pressure 155/65 H Pulse Oximetry 100 98 Oxygen Delivery Method 11/02/21 01:00 11/02/21 01:00 11/02/21 01:30 Temperature Pulse Rate 58 L Respiratory Rate 39 H Blood Pressure 155/65 H 145/63 H Pulse Oximetry 99 Oxygen Delivery Method 11/02/21 01:30 11/02/21 02:00 11/02/21 02:00 Temperature Pulse Rate 56 L 52 L Respiratory Rate 19 16 Blood Pressure 128/59 L Pulse Oximetry 98 96 Oxygen Delivery Method 11/02/21 02:30 11/02/21 02:31 11/02/21 02:31 Temperature Pulse Rate 55 L 54 L Respiratory Rate 34 H Blood Pressure 123/61 Pulse Oximetry 95 95 Oxygen Delivery Method 11/02/21 03:00 11/02/21 03:00 11/02/21 03:41 Temperature Pulse Rate 60 56 L Respiratory Rate 16 Blood Pressure 130/62 155/78 H Pulse Oximetry 96 99 Oxygen Delivery Method Room Air MDM - Chest Pain Lab Data Result diagrams: 11/02/21 00:25 11/02/21 00:25 Labs: Lab Results 11/02/21 11/02/21 11/02/21 Range/Units 00:25 00:25 02:35 WBC 5.7 (4.5-11.0) X10^3/uL RBC 4.17 (4.0-5.2) X10^6/uL Hgb 12.7 (12.0-16.0) g/dL Hct 37.5 (36-46) % MCV 89.9 (80-100) fL MCH 30.5 (26-34) PG MCHC 33.9 (30-36) % RDW 12.9 (11.6-14.8) % Plt Count 210 (150-400) X10^3/uL Neut % (Auto) 51.2 (50-75) % Lymph % (Auto) 34.9 (25-40) % [place] % (Auto) 10.3 (3-14) % Eos % (Auto) 2.8 (2-4) % Baso % (Auto) 0.8 (0-2) % Neut # (Auto) 2900 (3629-3190) /uL Lymph # (Auto) 2000 (4863-8271) /uL [place] # (Auto) 600 (0-900) /uL Eos # (Auto) 200 (0-450) /uL Baso # (Auto) 0 (0-100) /uL Sodium 139 (137-145) mmol/L Potassium 4.0 (3.4-5.1) mmol/L Chloride 104 (98-107) mmol/L Carbon Dioxide 28 (22-32) mmol/L BUN 19 H (7-17) mg/dL Creatinine 0.68 (0.52-1.04) mg/dL Estimated GFR > 60 (>60) mL/min BUN/Creatinine Ratio 27.9 H (6-22) Glucose 108 (80-110) mg/dL Calcium 10.1 (8.4-10.2) mg/dL Total Bilirubin 0.2 (0.2-1.3) mg/dL AST 32 (14-36) IU/L ALT 17 (<35) IU/L Alkaline Phosphatase 62 (38-126) U/L Total Creatine Kinase 53 (30-135) U/L CK-MB (CK-2) TNP CK-MB (CK-2) Rel Index TNP Troponin I < 0.012 < 0.012 (0.01-0.034) ng/mL Total Protein 7.8 (6.3-8.2) g/dL Albumin 4.5 (3.5-5.0) g/dL Globulin 3.3 (1.7-4.1) g/dL Albumin/Globulin Ratio 1.4 (1.0-2.8) Lipase 97 (23-300) U/L Imaging Data Chest x-ray: Radiologist's Impression: Close Chest X-Ray (Signed) Ye Hines - 11/02/21 Chest/Abdomen/Pelvis CTA (Signed) Geetha Cuello - 04/14/20 Chest X-Ray (Signed) Geetha Cuello - 04/14/20 Telemetry Strips 04/14/20 Chest X-Ray (Signed) Олег Rodas - 02/19/19 Chest/Abdomen CT (Signed) Pancho Shelton - 11/26/18 Abdomen Ultrasound (Signed) Pancho Shelton - 11/26/18 Chest X-Ray (Signed) Pancho Shelton - 11/25/18 Launch?[place] [address] XRay Report Signed Patient: Lauren Laura MR#: [id number] : 1940 Acct:[id number] Age/Sex: 81 / F Date of Service: 11/02/21 Loc: ED Accession Number: [id number] ?? Procedure: XR chest 1V Ordering Provider: Odessa Cosme D.O. PROCEDURE:? XR CHEST 1V ? INDICATIONS:? chest pain ? TECHNIQUE:? One view of the chest was acquired.? ? COMPARISON:? [facility], , XR CHEST 1V, 04/14/2020, 22:10. ? FINDINGS:? ? Surgical changes and devices:? None.? ? Lungs and pleura:? Lungs are clear.? There is elevation of the right hemidiaphragm redemonstrated.? No pleural effusions or pneumothorax.? ? Mediastinum:? Mediastinal contours appear normal.? Heart size is normal.? ? Bones and chest wall:? No suspicious bony lesions.? Overlying soft tissues appear unremarkable.? ? IMPRESSION:? ? 1.? No acute cardiopulmonary disease. ? ? ? Dictated by: Ye Hines M.D. on 11/02/2021 at 1:19 ? ? Approved by: Ye Hines M.D. on 11/02/2021 at 1:20? ECG Data Attestation: I personally reviewed and interpreted this ECG as follows: Interpretation: Sinus rhythm rate of 62 WA 142 QRS is 72 and QTC of 403. No acute ST changes appreciated. EKG 2. Shows sinus bradycardia rate of 55, P are 134 QRS is 74 and QTC of 420. Patient not have significant change in EKG no dynamic changes. Has priors from 06/21/2020 and 04/14/[address] segments. MDM Narrative Medical decision making narrative: This is a 81-year-old female who has left-sided chest pain this evening typically occurs while she is lying flat and occurred this evening in the same way she felt she had some relief with Protonix. Patient had cardiac workup at [facility] with treadmill testing and states she is quite active and walks 2-3 miles daily. She had an EGD 8 received a prescription for pantoprazole and lidocaine viscous about 2 years ago in April of 2020. She was also significantly bradycardic at that episode and was felt to be having a vagal response to pain. Patient and I discussed she has little bit change from her typical heartburn symptoms in terms of the location. Offered cardiac observation but patient politely defers we discussed that this could possibly be gastric in nature but that we can not rule out a cardiac cause. She prefers to return home and is aware that repeat stress testing is recommended. Discharge Plan Departure Patient Disposition: Home Clinical Impression: Atypical chest pain Instructions: DI for Atypical Chest Pain Activity Restrictions/Additional Instructions: Follow-up with your primary care provider for recheck. Your symptoms today be related to gastritis or reflux but there is a possibility that they could be cardiac in nature. It would be appropriate to repeat stress testing. You can continue home medications as prescribed. You can try the medications your prescribed last spring for your stomach. Please return for new or worsening chest pain, shortness of breath, lightheadedness or passing out, persistent vomiting or other new or concerning symptoms. Prescriptions: No Action CALCIUM CITRATE/VITAMIN D3 (Calcitrate + Vit D Caplet) 2 tab PO QDAY Qty: 0 melatonin 3 MG tablet 5 mg PO HS Qty: 0 fexofenadine 180 MG tablet 90 mg PO QDAY Qty: 0 simvastatin [Zocor] 20 MG tablet 20 mg HS Qty: 0 losartan 25 MG tablet 50 mg PO QDAY Qty: 0 COENZYME Q10/VITAMIN E (CO-Q-10 100mg) Q DAY Qty: 0 magnesium amino acid chelate 100 MG tablet 125 mg PO QDAY Qty: 0 calcium carbonate [Tums] 500 MG tablet,chewable 500 mg PO PRN PRNQty: 0 estradiol [Estrace] 0.01 % cream 1 gm Vaginal PRN PRNQty: 1 3RF pantoprazole 20 mg tablet,delayed release (DR/EC) 20 mg PO DAILY Qty: 30 3RF anastrozole 1 MG tablet 1 mg PO QDAY Qty: 90 2RF Referrals: Anyi Pérez, [facility] [Primary Care Provider] - Visit Report Forms: Patient Portal/API
--- NOTE | 2021-11-02 03:21 | PC.NURSE ---
Patient sitting up on gurney, appears relaxed. Reports CP has completely resolved. Denies any pain or discomfort. Respirations equal, regular and unlabored. No acute distress noted. Patient and updated on plan of care.
[2021-11-02 03:25] LABS: Troponin I < 0.012 ng/mL (0.01-0.034)
== END 2021-11-02 03:51 | disposition home or self-care (01) ==
PROVIDERS: Emergency Provider Emergency Medicine; PCP Student in an Organized Health Care Education/Training Program
DX: R07.89 Other chest pain (principal)
CPT/HCPCS: 36415; 71045; 80053; 82550; 83690; 84484; 85025; 93005; 96374; 99284; C9113

== ENCOUNTER 2022-02-08 18:09 | Emergency (ER) | payer OTHER, SELFPAY ==
[2022-02-08 18:16] VITALS: BP 167/70; PULSE 54; RESP 18; TEMP 37.1; O2SAT 100; BMI 24.8
--- NOTE | 2022-02-08 18:19 | DI.RAD.S_ITS ---
PROCEDURE: XR CHEST 1V INDICATIONS: chest pain TECHNIQUE: One view of the chest was acquired. COMPARISON: [facility], CR, XR CHEST 1V, 11/02/2021, 0:29. FINDINGS: Surgical changes and devices: None. Lungs and pleura: Lungs are clear. No pleural effusions or pneumothorax. Mediastinum: Mediastinal contours appear normal. Heart size is normal. Bones and chest wall: No suspicious bony lesions. Overlying soft tissues appear unremarkable. IMPRESSION: No acute finding. Dictated by: Fernandez Pryor M.D. on 02/08/2022 at 18:55 Approved by: Fernandez Pryor M.D. on 02/08/2022 at 18:55
[2022-02-08 18:37] LABS: Add Manual Diff / Slide Review NO; Basophils Absolute Auto 100 /uL (0-100); Eosinophils Absolute Auto 100 /uL (0-450); Eosinophils Percent Auto 2.3 % (2-4); Hematocrit 38.6 % (36-46); Hemoglobin 12.9 g/dL (12.0-16.0); Lymphocytes Absolute Auto 1300 /uL (1100-4500); Lymphocytes Percent Auto 21.4 % (25-40); Mean Corpuscular HGB Conc 33.3 % (30-36); Mean Corpuscular Hemoglobin 30.7 PG (26-34); Mean Corpuscular Volume 92.1 fL (80-100); Monocytes Absolute Auto 500 /uL (0-900); Neutrophils Absolute Auto 4200 /uL (1500-7000); Neutrophils Percent Auto 67.3 % (50-75); Platelet Count 202 X10^3/uL (150-400); Red Blood Cell Count 4.19 X10^6/uL (4.0-5.2); Red Cell Distribution Width 13.4 % (11.6-14.8); White Blood Cell Count 6.2 X10^3/uL (4.5-11.0)
[2022-02-08 18:43] LABS: INR 0.9 (0.9-1.3); Prothrombin Time 10.8 SECONDS (10.1-12.7)
[2022-02-08 18:46] LABS: PTT Partial Thromboplastin Tim 30 SECONDS (26-36)
[2022-02-08 18:48] LABS: Alanine Aminotransferase 18 IU/L (<35); Albumin 4.4 g/dL (3.5-5.0); Albumin Globulin Ratio 1.4 (1.0-2.8); Alkaline Phosphatase 61 U/L (38-126); Aspartate Aminotransferase 28 IU/L (14-36); BUN Creatinine Ratio 31.8 (6-22); Bilirubin Total 0.2 mg/dL (0.2-1.3); Blood Urea Nitrogen 21 mg/dL (7-17); Calcium 9.7 mg/dL (8.4-10.2); Carbon Dioxide 27 mmol/L (22-32); Chloride 104 mmol/L (98-107); Creatine Kinase 38 U/L (30-135); Estimated Glomerular Filt Rate > 60 mL/min (>60); Globulin 3.2 g/dL (1.7-4.1); Glucose 124 mg/dL (80-110); HEMOLYSIS < 15 (0-50); Lipase 87 U/L (23-300); Potassium 3.8 mmol/L (3.4-5.1); Sodium 141 mmol/L (137-145); Total Protein 7.6 g/dL (6.3-8.2)
[2022-02-08 18:59] LABS: Troponin I < 0.012 ng/mL (0.01-0.034)
--- NOTE | 2022-02-08 19:36 | ED.CHESTPAIN ---
HPI - Chest Pain General Chief Complaint: Chest Pain Stated Complaint: Heart burn Time Seen by Provider: 02/08/22 19:35 Source: patient Mode of arrival: Ambulatory Limitations: no limitations History of Present Illness HPI narrative: This is a 81-year-old female history of hypertension and dyslipidemia who presents with complaint of epigastric pain that started yesterday mid day, she took her sucralfate and pantoprazole it went away and then this morning she had breakfast and she states it came back. She did take sucralfate again today had not gone away totally to get a little bit better but then has returned after eating some more. She denies any radiation no chest pain, no back pain, no arm pain, no belly pain. Patient states it food does seem to bring it on. She denies any worsening with activity. Some mild nausea which he states is little bit different no vomiting. Patient denies fevers or chills. No cough, cold or congestion. No shortness of breath. Patient denies any diaphoresis. No diarrhea constipation, no urinary symptoms. Patient states she is seen Gastroenterology in the past was given a prescription for some coughing pantoprazole she does not take any form of PPI or anti GERD medication regularly. She is had hysterectomy, appendectomy, she denies any cardiac catheterization or cardiac interventions. She had a stress test in the past year she saw Cardiology they offered distress test about 5 or 6 months ago but deferred she would recently had a stress test. She would an EGD 5 or 6 years ago because of symptoms and did not have changes seen at that time. She does not take any aspirin or other blood thinners. She has a brother who had atrial fibrillation but no other known coronary artery disease, parents are healthy with no cardiac issues. She denies tobacco, she does drink a beer daily, no illicit. Her primary care is Anyi Pérez. Related Data Home Medications Medication Instructions Recorded Confirmed CALCIUM CITRATE/VITAMIN D3 2 tab PO QDAY ##0 07/12/12 (Calcitrate + Vit D Caplet) COENZYME Q10/VITAMIN E (CO-Q-10 Q DAY ##0 10/02/12 100mg) fexofenadine 180 mg tablet 90 mg PO QDAY ##0 10/02/12 losartan 25 mg tablet 50 mg PO QDAY ##0 10/02/12 melatonin 3 mg tablet 5 mg PO HS ##0 10/02/12 simvastatin 20 mg tablet (Zocor) 20 mg HS ##0 10/02/12 calcium carbonate 200 mg calcium 500 mg PO PRN PRN ##0 06/25/16 (500 mg) chewable tablet (Tums) magnesium amino acid chelate 100 125 mg PO QDAY ##0 06/25/16 mg tablet Previous Rx's Medication Instructions Recorded estradiol 0.01% (0.1 mg/gram) 1 gm vaginal PRN PRN #1 tube 06/25/16 vaginal cream (Estrace) anastrozole 1 mg tablet 1 mg PO QDAY #90 tabs 07/11/17 pantoprazole 20 mg tablet,delayed 20 mg PO DAILY #30 tabs 06/22/20 release Allergies Allergy/AdvReac Type Severity Reaction Status Date / Time lisinopril [LISINOPRIL] Allergy Mild Cough Verified 02/08/22 18:15 lorazepam [LORAZEPAM] AdvReac Unknown DEPRESSION Verified 02/08/22 18:15 BRAZIL NUT Allergy Unknown Uncoded 02/08/22 18:15 Review of Systems Review of Systems ROS Unobtainable: All systems reviewed & are unremarkable except as noted in HPI and below Patient History Medical History GERD (gastroesophageal reflux disease) Hypertension Social History Smoking Status: Never smoker Smoking Status: Never smoker alcohol intake frequency: 0-2 drinks per day Alcohol type: beer Substance Use Type: does not use Exam Narrative Exam Narrative: GENERAL: Alert and oriented x three, well-nourished female in mild distress. HEENT: Head normocephalic, atraumatic, EOMI, pupils reactive, face symmetric, moist mucous membranes NECK: Supple, full range of motion CARDIOVASCULAR: Regular rate and rhythm without murmurs, rubs or gallops. RESPIRATORY: Breath sounds equal bilaterally, no wheezes rales or rhonchi. ABDOMEN: Soft, patient has mild epigastric tenderness. Normoactive bowel sounds all 4 quadrants. No guarding or rebound, rigidity, no mass : No CVA tenderness EXTREMITIES: Normal range of motion, no clubbing or edema. Neurovascularly intact NEUROLOGICAL: Cranial nerves II through XII grossly intact. Moving all extremities SKIN: Warm, dry, no petechiae, no rashes or lesions. Initial Vital Signs Initial Vital Signs: Vital Signs Temperature 98.7 F 02/08/22 18:16 Pulse Rate 54 L 02/08/22 18:16 Respiratory Rate 18 02/08/22 18:16 Blood Pressure 167/70 H 02/08/22 18:16 Pulse Oximetry 100 02/08/22 18:16 Oxygen Delivery Method 02/08/22 18:16 Scores HEART Score Heart Score history: Slightly Suspicious Heart Score EKG: Normal Heart Score Age: > or = 65 years old Heart Score risk factors: 1-2 risk factors Heart Score troponin: < or = to normal limit Heart Score Total: 3 Course Orders Ordered: Discontinued Medications Al Hydrox/Mg Hydrox/Simethicone (Mag Hydrox/Alum/Simeth 30 Ml Udc) 30 ml PO NOW ONE Stop: 02/08/22 20:16 Last Admin: 02/08/22 20:24 Dose: 30 ml Documented By: TAVON Aspirin (Aspirin 81 Mg Chew Tab) 324 mg PO NOW ONE Stop: 02/08/22 18:20 Last Admin: 02/08/22 19:51 Dose: Not Given Documented By: TAVON Al Hydrox/Mg Hydrox/Simethicone 20 ml/ Lidocaine HCl 15 ml 0 ml PO NOW ONE Stop: 02/08/22 19:52 Last Admin: 02/08/22 20:16 Dose: Not Given Documented By: MANDY Lidocaine HCl (Lidocaine Viscous 2% 15 Ml Solution) 15 ml PO NOW ONE Stop: 02/08/22 20:16 Last Admin: 02/08/22 20:24 Dose: 15 ml Documented By: TAVON Vital Signs Vital signs: Vital Signs - 8 hr 02/08/22 18:16 Temperature 98.7 F Pulse Rate 54 L Respiratory Rate 18 Blood Pressure 167/70 H Pulse Oximetry 100 Oxygen Delivery Method Room Air MDM - Chest Pain Lab Data Result diagrams: 02/08/22 18:26 02/08/22 18:26 Labs: Lab Results 02/08/22 02/08/22 02/08/22 Range/Units 18:26 18:26 18:26 WBC 6.2 (4.5-11.0) X10^3/uL RBC 4.19 (4.0-5.2) X10^6/uL Hgb 12.9 (12.0-16.0) g/dL Hct 38.6 (36-46) % MCV 92.1 (80-100) fL MCH 30.7 (26-34) PG MCHC 33.3 (30-36) % RDW 13.4 (11.6-14.8) % Plt Count 202 (150-400) X10^3/uL Neut % (Auto) 67.3 (50-75) % Lymph % (Auto) 21.4 L (25-40) % Cole % (Auto) 8.0 (3-14) % Eos % (Auto) 2.3 (2-4) % Baso % (Auto) 1.0 (0-2) % Neut # (Auto) 4200 (9057-3880) /uL Lymph # (Auto) 1300 (0486-3516) /uL Cole # (Auto) 500 (0-900) /uL Eos # (Auto) 100 (0-450) /uL Baso # (Auto) 100 (0-100) /uL PT 10.8 (10.1-12.7) SECONDS INR 0.9 (0.9-1.3) APTT 30 (26-36) SECONDS Sodium 141 (137-145) mmol/L Potassium 3.8 (3.4-5.1) mmol/L Chloride 104 (98-107) mmol/L Carbon Dioxide 27 (22-32) mmol/L BUN 21 H (7-17) mg/dL Creatinine 0.66 (0.52-1.04) mg/dL Estimated GFR > 60 (>60) mL/min BUN/Creatinine Ratio 31.8 H (6-22) Glucose 124 H (80-110) mg/dL Calcium 9.7 (8.4-10.2) mg/dL Magnesium 2.0 (1.6-2.3) mg/dL Total Bilirubin 0.2 (0.2-1.3) mg/dL AST 28 (14-36) IU/L ALT 18 (<35) IU/L Alkaline Phosphatase 61 (38-126) U/L Total Creatine Kinase 38 (30-135) U/L CK-MB (CK-2) TNP CK-MB (CK-2) Rel Index TNP Troponin I < 0.012 (0.01-0.034) ng/mL Total Protein 7.6 (6.3-8.2) g/dL Albumin 4.4 (3.5-5.0) g/dL Globulin 3.2 (1.7-4.1) g/dL Albumin/Globulin Ratio 1.4 (1.0-2.8) Lipase 87 (23-300) U/L SARS-CoV-2 (PCR) (Negative) 02/08/22 02/08/22 Range/Units 20:00 20:30 WBC (4.5-11.0) X10^3/uL RBC (4.0-5.2) X10^6/uL Hgb (12.0-16.0) g/dL Hct (36-46) % MCV (80-100) fL MCH (26-34) PG MCHC (30-36) % RDW (11.6-14.8) % Plt Count (150-400) X10^3/uL Neut % (Auto) (50-75) % Lymph % (Auto) (25-40) % Cole % (Auto) (3-14) % Eos % (Auto) (2-4) % Baso % (Auto) (0-2) % Neut # (Auto) (6976-6284) /uL Lymph # (Auto) (8193-9236) /uL Cole # (Auto) (0-900) /uL Eos # (Auto) (0-450) /uL Baso # (Auto) (0-100) /uL PT (10.1-12.7) SECONDS INR (0.9-1.3) APTT (26-36) SECONDS Sodium (137-145) mmol/L Potassium (3.4-5.1) mmol/L Chloride (98-107) mmol/L Carbon Dioxide (22-32) mmol/L BUN (7-17) mg/dL Creatinine (0.52-1.04) mg/dL Estimated GFR (>60) mL/min BUN/Creatinine Ratio (6-22) Glucose (80-110) mg/dL Calcium (8.4-10.2) mg/dL Magnesium (1.6-2.3) mg/dL Total Bilirubin (0.2-1.3) mg/dL AST (14-36) IU/L ALT (<35) IU/L Alkaline Phosphatase (38-126) U/L Total Creatine Kinase (30-135) U/L CK-MB (CK-2) CK-MB (CK-2) Rel Index Troponin I < 0.012 (0.01-0.034) ng/mL Total Protein (6.3-8.2) g/dL Albumin (3.5-5.0) g/dL Globulin (1.7-4.1) g/dL Albumin/Globulin Ratio (1.0-2.8) Lipase (23-300) U/L SARS-CoV-2 (PCR) Negative (Negative) Imaging Data Chest x-ray: Radiologist's Impression: Close Chest X-Ray (Signed) Fernandez Pryor - 02/08/22 EKG Rpt. 11/02/21 Chest X-Ray (Signed) Ye Hines - 11/02/21 Chest/Abdomen/Pelvis CTA (Signed) Geetha Cuello - 04/14/20 Chest X-Ray (Signed) Geetha Cuello - 04/14/20 Telemetry Strips 04/14/20 Chest X-Ray (Signed) Олег Rodas - 02/19/19 Chest/Abdomen CT (Signed) Pancho Shelton - 11/26/18 Abdomen Ultrasound (Signed) Pancho Shelton - 11/26/18 Chest X-Ray (Signed) Pancho Shelton - 11/25/18 [place] [address] XRay Report Signed Patient: Lauren Laura MR#: [id number] : 1940 Acct:[id number] Age/Sex: 81 / F Date of Service: 02/08/22 Loc: ED Accession Number: [id number] ?? Procedure: XR chest 1V Ordering Provider: Odessa Cosme D.O. PROCEDURE:? XR CHEST 1V ? INDICATIONS:? chest pain ? TECHNIQUE:? One view of the chest was acquired.? ? COMPARISON:? [facility], , XR CHEST 1V, 11/02/2021, 0:29. ? FINDINGS:? ? Surgical changes and devices:? None.? ? Lungs and pleura:? Lungs are clear.? No pleural effusions or pneumothorax.? ? Mediastinum:? Mediastinal contours appear normal.? Heart size is normal.? ? Bones and chest wall:? No suspicious bony lesions.? Overlying soft tissues appear unremarkable.? ? IMPRESSION:? No acute finding. ? ? Dictated by: Fernandez Pryor M.D. on 02/08/2022 at 18:55 ? ? Approved by: Fernandez Pryor M.D. on 02/08/2022 at 18:55?? ECG Data Attestation: I personally reviewed and interpreted this ECG as follows: Interpretation: Sinus bradycardia rate of 54 [place] 142 QRS 76 and QTC of 405. No acute ST elevation or depression noted. Patient has prior from 11/02/2021 with no acute changes. EKG 2. Shows sinus bradycardia rate of 53 [place] 138 QRS 74 and QTC of 397. No acute dynamic changes appreciated. MDM Narrative Medical decision making narrative: This is a 81-year-old female comes in with complaint of epigastric pain patient states improved vessel call for any pantoprazole yesterday but then returned seems to be worsened by food. She does have cardiac risk factors with hypertension dyslipidemia she is had EGD, about 5-6 years ago nothing seen at that time. She is also seeing Gastroenterology she is not on a daily PPI. Patient does not have strong family history, but based on age does have some risk. Her CBC, CMP and troponin as well as coags are negative, she would no dynamic changes on her 1st EKG. Repeat trop and EKG were obtained and show no change. Patient had GI cocktail symptoms resolved. Discharge Plan Departure Patient Disposition: Home Clinical Impression: Epigastric pain Instructions: DI for Epigastric Pain Activity Restrictions/Additional Instructions: Follow-up with your physician for recheck. I would recommend that you take your pantoprazole daily along with your regular medications. Please return for new or worsening chest pain, shortness of breath, lightheadedness or passing out, persistent vomiting, new or worsening abdominal pain, new swelling in her legs or other new or concerning changes. Prescriptions: No Action CALCIUM CITRATE/VITAMIN D3 (Calcitrate + Vit D Caplet) 2 tab PO QDAY Qty: 0 melatonin 3 MG tablet 5 mg PO HS Qty: 0 fexofenadine 180 MG tablet 90 mg PO QDAY Qty: 0 simvastatin [Zocor] 20 MG tablet 20 mg HS Qty: 0 losartan 25 MG tablet 50 mg PO QDAY Qty: 0 COENZYME Q10/VITAMIN E (CO-Q-10 100mg) Q DAY Qty: 0 magnesium amino acid chelate 100 MG tablet 125 mg PO QDAY Qty: 0 calcium carbonate [Tums] 500 MG tablet,chewable 500 mg PO PRN PRNQty: 0 estradiol [Estrace] 0.01 % cream 1 gm Vaginal PRN PRNQty: 1 3RF pantoprazole 20 mg tablet,delayed release (DR/EC) 20 mg PO DAILY Qty: 30 3RF anastrozole 1 MG tablet 1 mg PO QDAY Qty: 90 2RF Referrals: Anyi Pérez, [facility] [Primary Care Provider] -
--- NOTE | 2022-02-08 19:56 | PC.NURSE ---
Patient with hx of GERD. Noticed symptoms yesterday after lunch and took sulcrafate and pantoprazole with relief. Symptoms returned today again after lunch but did not get relief from same meds.
[2022-02-08] MEDS: LIDOCAINE VISCOUS 2% 15 ML SOLUTION PO (20:24)
[2022-02-08] MEDS: MAG HYDROX/ALUM/SIMETH 30 ML UDC PO (20:24)
[2022-02-08 20:28] LABS: COVID19 -Nasal RAPID Negative (Negative)
[2022-02-08 21:40] LABS: Troponin I < 0.012 ng/mL (0.01-0.034)
[2022-02-08 22:18] VITALS: BP 149/66; PULSE 54; RESP 18; O2SAT 95
== END 2022-02-08 22:21 | disposition home or self-care (01) ==
PROVIDERS: Emergency Provider Emergency Medicine; PCP Student in an Organized Health Care Education/Training Program
DX: R10.13 Epigastric pain (principal); R07.9 Chest pain, unspecified; R00.1 Bradycardia, unspecified; R11.0 Nausea; Z79.899 Other long term (current) drug therapy; Z20.822 Contact with and (suspected) exposure to COVID-19
CPT/HCPCS: 36415; 71045; 80053; 82550; 83690; 83735; 84484; 85025; 85610; 85730; 87635; 93005; 99283; 99284; C9803

== ENCOUNTER 2022-03-12 17:41 | Emergency (ER) | payer OTHER, SELFPAY ==
[2022-03-12 17:44] VITALS: PULSE 60; RESP 18; TEMP 36; O2SAT 99; BMI 24.8
--- NOTE | 2022-03-12 17:48 | DI.RAD.S_ITS ---
PROCEDURE: XR CHEST 1V INDICATIONS: chest pain TECHNIQUE: One view of the chest was acquired. COMPARISON: [facility], CT, CT ANGIO CHEST ABDOMEN PELVIS, 04/14/2020, 23:45. [facility], CR, XR CHEST 1V, 02/08/2022, 18:35. [facility], CR, XR CHEST 1V, 11/02/2021, 0:29. [facility], CR, XR CHEST 2 VIEWS, 07/02/2021, 18:21. FINDINGS: Surgical changes and devices: None Lungs and pleura: On this semiupright portable chest examination, no large pneumothorax or large pleural effusions are seen. No focal infiltrates are seen. Mediastinum: Mediastinal contours appear normal. Heart size is normal. Atherosclerotic calcification of the aortic arch is noted. Bones and chest wall: No suspicious bony lesions. Age-appropriate bony degenerative changes are seen. Mild levoconvex scoliotic curvature is noted. Focal calcification can be seen within the left breast. IMPRESSION: Unremarkable portable chest for age. Dictated by: Raj Kay M.D. on 03/12/2022 at 17:24 Approved by: Raj Kay M.D. on 03/12/2022 at 17:27
[2022-03-12 18:00] VITALS: PULSE 59; O2SAT 99
[2022-03-12 18:01] VITALS: BP 160/70; PULSE 60; O2SAT 100
[2022-03-12 18:11] LABS: Add Manual Diff / Slide Review NO; Basophils Absolute Auto 0 /uL (0-100); Basophils Percent Auto 0.7 % (0-2); Eosinophils Absolute Auto 100 /uL (0-450); Eosinophils Percent Auto 2.3 % (2-4); Hematocrit 33.5 % (36-46); Hemoglobin 11.3 g/dL (12.0-16.0); Lymphocytes Absolute Auto 1500 /uL (1100-4500); Lymphocytes Percent Auto 24.3 % (25-40); Mean Corpuscular HGB Conc 33.7 % (30-36); Mean Corpuscular Hemoglobin 30.3 PG (26-34); Mean Corpuscular Volume 89.8 fL (80-100); Monocytes Absolute Auto 500 /uL (0-900); Monocytes Percent Auto 8.5 % (3-14); Neutrophils Absolute Auto 4100 /uL (1500-7000); Neutrophils Percent Auto 64.2 % (50-75); Platelet Count 227 X10^3/uL (150-400); Red Blood Cell Count 3.73 X10^6/uL (4.0-5.2); Red Cell Distribution Width 12.6 % (11.6-14.8); White Blood Cell Count 6.4 X10^3/uL (4.5-11.0)
[2022-03-12 18:19] LABS: Prothrombin Time 11.2 SECONDS (10.1-12.7)
[2022-03-12 18:22] LABS: Alanine Aminotransferase 22 IU/L (<35); Albumin 4.5 g/dL (3.5-5.0); Albumin Globulin Ratio 1.6 (1.0-2.8); Alkaline Phosphatase 58 U/L (38-126); Aspartate Aminotransferase 29 IU/L (14-36); BUN Creatinine Ratio 26.7 (6-22); Bilirubin Total 0.3 mg/dL (0.2-1.3); Blood Urea Nitrogen 20 mg/dL (7-17); Calcium 9.6 mg/dL (8.4-10.2); Carbon Dioxide 27 mmol/L (22-32); Chloride 103 mmol/L (98-107); Creatine Kinase 51 U/L (30-135); Estimated Glomerular Filt Rate > 60 mL/min (>60); Globulin 2.9 g/dL (1.7-4.1); Glucose 103 mg/dL (80-110); HEMOLYSIS < 15 (0-50); Lipase 102 U/L (23-300); Magnesium 1.9 mg/dL (1.6-2.3); PTT Partial Thromboplastin Tim 30 SECONDS (26-36); Sodium 137 mmol/L (137-145); Total Protein 7.4 g/dL (6.3-8.2)
--- NOTE | 2022-03-12 18:28 | ED_ITS ---
HPI - Chest Pain General Chief Complaint: Chest Pain Stated Complaint: Acid reflux Time Seen by Provider: 03/12/22 18:28 Source: patient Mode of arrival: Ambulatory Limitations: no limitations History of Present Illness HPI narrative: 81-year-old woman with a history of hypertension, hyperlipidemia who has been seen a number of times in the past for epigastric pain, reflux and atypical chest pain. She is never had cardiac event nor heart catheterization. She has seen a health information administrator approximately 5 years ago and had an upper endoscopy that was seemingly minimally abnormal. Recommended a number of diet changes to which she has been quite adherent over the last 5 years and has been controlling her reflux symptoms quite nicely with this. In 2021 she was given a prescription for Protonix to use as needed and has not used it much. In early February she was seen in the emergency department and told to start the Protonix daily she is been doing that and today still had an episode of severe epigastric pain. She took a 2nd Protonix and Carafate and by the time she is evaluated in the ER her pain has essentially abated. She describes the pain as a burning epigastric pain that does not radiate not associated with exercise. She notes that she went for her usual long walk this morning and did not have any difficulties at all. The pain is not positional and not associated with diaphoresis, dyspnea, palpitations. She very specifically notes that she has not had any change to her bowels, no black stools, occasional mild nausea but no vomiting. Related Data Home Medications Medication Instructions Recorded Confirmed CALCIUM CITRATE/VITAMIN D3 2 tab PO QDAY ##0 07/12/12 (Calcitrate + Vit D Caplet) COENZYME Q10/VITAMIN E (CO-Q-10 Q DAY ##0 10/02/12 100mg) fexofenadine 180 mg tablet 90 mg PO QDAY ##0 10/02/12 losartan 25 mg tablet 50 mg PO QDAY ##0 10/02/12 melatonin 3 mg tablet 5 mg PO HS ##0 10/02/12 simvastatin 20 mg tablet (Zocor) 20 mg HS ##0 10/02/12 calcium carbonate 200 mg calcium 500 mg PO PRN PRN ##0 06/25/16 (500 mg) chewable tablet (Tums) magnesium amino acid chelate 100 125 mg PO QDAY ##0 06/25/16 mg tablet Previous Rx's Medication Instructions Recorded estradiol 0.01% (0.1 mg/gram) 1 gm vaginal PRN PRN #1 tube 06/25/16 vaginal cream (Estrace) anastrozole 1 mg tablet 1 mg PO QDAY #90 tabs 07/11/17 pantoprazole 20 mg tablet,delayed 20 mg PO DAILY #30 tabs 06/22/20 release Allergies Allergy/AdvReac Type Severity Reaction Status Date / Time lisinopril [LISINOPRIL] Allergy Mild Cough Verified 02/08/22 18:15 lorazepam [LORAZEPAM] AdvReac Unknown DEPRESSION Verified 02/08/22 18:15 BRAZIL NUT Allergy Unknown Uncoded 02/08/22 18:15 Review of Systems Review of Systems Narrative: Remainder of complete review of systems is otherwise unremarkable except for that included in the HPI. Patient History Medical History GERD (gastroesophageal reflux disease) Hypertension Social History Smoking Status: Never smoker Smoking Status: Never smoker alcohol intake frequency: 0-2 drinks per day Alcohol type: beer Substance Use Type: does not use Exam Initial Vital Signs Initial Vital Signs: Vital Signs Temperature 96.8 F L 03/12/22 17:44 Pulse Rate 60 03/12/22 17:44 Respiratory Rate 18 03/12/22 17:44 Pulse Oximetry 99 03/12/22 17:44 Oxygen Delivery Method 03/12/22 17:44 General: Healthy appearing, in no acute distress. Able to give a complete and coherent history. Well-nourished well-developed HEENT: Moist mucous membranes, normal sclera with reactive pupils, Neck: No JVD, supple Respiratory: Lungs are clear to auscultation, no wheezing no rales no rhonchi. Full and symmetrical air movement Cardiac: Regular rate and rhythm no murmurs no bruits Abdomen: Soft, mild epigastric tenderness without rebound or guarding, good bowel tones, no flank pain Skin: Warm and dry, no rashes Neurologic: Grossly neurologically intact with no obvious asymmetries or abnormalities Extremities: No trauma, well perfused Psych: Cooperative, appropriate insight and affect Course Orders Ordered: ED Orders 03/12/22 17:48 XR chest 1V Stat COVID19 -Nasal RAPID/Pre-Proc Stat 03/12/22 17:53 Complete Blood Count AUTO DIFF Stat Comprehensive Metabolic Panel Stat Lipase Stat Magnesium Stat Partial Thromboplastin Time Stat Prothrombin Time INR Stat Troponin & CK Cardiac Panel Stat 03/12/22 17:59 EKG-12 Lead Stat Discontinued Medications Aspirin (Aspirin 81 Mg Chew Tab) 324 mg PO NOW ONE Stop: 03/12/22 17:49 Vital Signs Vital signs: Vital Signs - 8 hr 03/12/22 17:44 Temperature 96.8 F L Pulse Rate 60 Respiratory Rate 18 Pulse Oximetry 99 Oxygen Delivery Method Room Air MDM - Chest Pain Lab Data 03/12/22 17:53 03/12/22 17:53 Labs: Lab Results 03/12/22 03/12/22 03/12/22 Range/Units 17:53 17:53 17:53 WBC 6.4 (4.5-11.0) X10^3/uL RBC 3.73 L (4.0-5.2) X10^6/uL Hgb 11.3 L (12.0-16.0) g/dL Hct 33.5 L (36-46) % MCV 89.8 (80-100) fL MCH 30.3 (26-34) PG MCHC 33.7 (30-36) % RDW 12.6 (11.6-14.8) % Plt Count 227 (150-400) X10^3/uL Neut % (Auto) 64.2 (50-75) % Lymph % (Auto) 24.3 L (25-40) % [place] % (Auto) 8.5 (3-14) % Eos % (Auto) 2.3 (2-4) % Baso % (Auto) 0.7 (0-2) % Neut # (Auto) 4100 (5991-2628) /uL Lymph # (Auto) 1500 (4635-9566) /uL [place] # (Auto) 500 (0-900) /uL Eos # (Auto) 100 (0-450) /uL Baso # (Auto) 0 (0-100) /uL PT 11.2 (10.1-12.7) SECONDS INR 1.0 (0.9-1.3) APTT 30 (26-36) SECONDS Sodium 137 (137-145) mmol/L Potassium 4.0 (3.4-5.1) mmol/L Chloride 103 (98-107) mmol/L Carbon Dioxide 27 (22-32) mmol/L BUN 20 H (7-17) mg/dL Creatinine 0.75 (0.52-1.04) mg/dL Estimated GFR > 60 (>60) mL/min BUN/Creatinine Ratio 26.7 H (6-22) Glucose 103 (80-110) mg/dL Calcium 9.6 (8.4-10.2) mg/dL Magnesium 1.9 (1.6-2.3) mg/dL Total Bilirubin 0.3 (0.2-1.3) mg/dL AST 29 (14-36) IU/L ALT 22 (<35) IU/L Alkaline Phosphatase 58 (38-126) U/L Total Creatine Kinase 51 (30-135) U/L CK-MB (CK-2) TNP CK-MB (CK-2) Rel Index TNP Troponin I < 0.012 (0.01-0.034) ng/mL Total Protein 7.4 (6.3-8.2) g/dL Albumin 4.5 (3.5-5.0) g/dL Globulin 2.9 (1.7-4.1) g/dL Albumin/Globulin Ratio 1.6 (1.0-2.8) Lipase 102 (23-300) U/L Imaging Data Chest x-ray: Radiologist's Impression: FINDINGS:? ? Surgical changes and devices:? None ? Lungs and pleura:? On this semiupright portable chest examination, no large pneumothorax or large pleural effusions are seen.? No focal infiltrates are seen.? ? Mediastinum:? Mediastinal contours appear normal.? Heart size is normal.? Atherosclerotic calcification of the aortic arch is noted.? ? Bones and chest wall:? No suspicious bony lesions.? Age-appropriate bony degenerative changes are seen.? Mild levoconvex scoliotic curvature is noted. ? ? Focal calcification can be seen within the left breast.? IMPRESSION:? Unremarkable portable chest for age. ? ? Dictated by: Raj Kay M.D. on 03/12/2022 at 17:24 ? ? ECG Data Interpretation: Sinus bradycardia at a rate of 57 Normal intervals, normal axis No acute ischemic changes MDM Narrative Medical decision making narrative: CC: Epigastric pain. This is an acute exacerbation of a chronic problem with uncertain prognosis and potential life-threatening abnormality Complicating co-morbidities: History of reflux, H Corroborating data: Data collected from: patient, Medical records reviewed: Prior notes for epigastric pain, bradycardia, atypical chest pain all related to her reflux going back to 2019 Differential considered: Reflux, gastric ulcer, peptic ulcer, upper GI bleed, acute coronary syndrome, pneumothorax, pancreatic abnormality or tumor given the epigastric pain Exam documented above, pertinent findings include: Midepigastric pain Lab Test results independently reviewed as above. Pertinent findings: H&H shows no leukocytosis but a new anemia with hemoglobin at 11.3 and hematocrit 33.5 which is a change from labs in October and early February. Chemistries are unremarkable Independently reviewed EKG as above Imaging studies independently reviewed: Chest x-ray is unremarkable Discussion: 81-year-old woman with intermittent mild epigastric pain diet con trolled over the last 5 years that is clearly escalating over the last couple of months. She has been on Protonix daily for the last month and is again having symptoms. Of note is a mild anemia. In February her hemoglobin was 12.9 is now at 11.3. Her hemoglobin was 38.6 and is now at 33.5. She describes no change to her bowels or black stools however in light of the persistent and increasing epigastric pain I am concerned that she has additional pathology and does need outpatient GI follow-up. Will ask her to increase her Protonix to 40 mg daily, she has enough medication at home to do this for at least 2-1/2 months. Reviewed with her the anemia and concerns for worsening symptoms and she will contact her primary care provider to see if a referral is needed and can be obtained for outpatient GI follow-up with presumed EGD. We also discussed continuing her diet changes that have been effective for the last 5 years and using Tums and/or Carafate if she is having acute episodes of pain. Encouraged her to return should she have any black stools, or overt GI bleeding Disposition: see below, along with detailed discharge instructions that have been reviewed with patient as well as indications for ED re-evaluation and additional outpatient follow up Discharge Plan Departure Patient Disposition: Home Clinical Impression: Epigastric pain Acid reflux Qualifiers: Esophagitis presence: esophagitis presence not specified Qualified Code(s): K21.9 - Gastro-esophageal reflux disease without esophagitis Anemia Qualifiers: Anemia type: unspecified type Qualified Code(s): D64.9 - Anemia, unspecified Instructions: DI for Gastroesophageal Reflux Disease (GERD) Activity Restrictions/Additional Instructions: Thank you for coming in today I do believe that the pain you are experiencing is from your stomach/heartburn. I am concerned that it is getting worse despite escalating treatments. You do need to see a health information administrator and probably need to have another upper endoscopy to make sure that there isn't an additional diagnosis such as an ulcer that is causing your pain. I am concerned that your labs are showing mild anemia. Your hemoglobin decreased in the last month from 12.9->11.3. Your katia tocrit decreased from 38.6->33.5. I am going to ask you to increase your Protonix to 40 mg daily beginning tomorrow. Please do continue the dietary changes that have been helpful in controlling your reflux previously. If you have acute pain I would recommend trying Tums and or Carafate to see if these are helpful in immediately reducing the symptoms. Please contact your primary care doctor on Tuesday if you do need a referral otherwise you can contact the Gastroenterology offices directly for an ER follow-up regarding epigastric pain with anemia. If [facility] does not have appointments for a number of months, there are Gastroenterology groups both in [place] and regional hospital for respiratory and complex care that may be able to see you more expeditiously If you find that you are having any black stools, diarrhea with red stools or vomiting any blood or coffee-ground looking emesis these are all signs of acute bleeding from your stomach and you need to come to the emergency department immediately Prescriptions: No Action CALCIUM CITRATE/VITAMIN D3 (Calcitrate + Vit D Caplet) 2 tab PO QDAY Qty: 0 melatonin 3 MG tablet 5 mg PO HS Qty: 0 fexofenadine 180 MG tablet 90 mg PO QDAY Qty: 0 simvastatin [Zocor] 20 MG tablet 20 mg HS Qty: 0 losartan 25 MG tablet 50 mg PO QDAY Qty: 0 COENZYME Q10/VITAMIN E (CO-Q-10 100mg) Q DAY Qty: 0 magnesium amino acid chelate 100 MG tablet 125 mg PO QDAY Qty: 0 calcium carbonate [Tums] 500 MG tablet,chewable 500 mg PO PRN PRNQty: 0 estradiol [Estrace] 0.01 % cream 1 gm Vaginal PRN PRNQty: 1 3RF pantoprazole 20 mg tablet,delayed release (DR/EC) 20 mg PO DAILY Qty: 30 3RF anastrozole 1 MG tablet 1 mg PO QDAY Qty: 90 2RF Referrals: Anyi Pérez PA-C [Primary Care Provider] - Stand Alone Forms: Patient Portal/API
[2022-03-12 18:30] VITALS: PULSE 61; RESP 23; O2SAT 99
[2022-03-12 18:33] LABS: Troponin I < 0.012 ng/mL (0.01-0.034)
[2022-03-12 18:46] VITALS: BP 170/72; PULSE 59; RESP 24; O2SAT 98
[2022-03-12 19:00] VITALS: PULSE 56; RESP 17; O2SAT 98
== END 2022-03-12 19:40 | disposition home or self-care (01) ==
PROVIDERS: Emergency Medicine; Emergency Provider Emergency Medicine; PCP Student in an Organized Health Care Education/Training Program
DX: R10.13 Epigastric pain (principal); K21.9 Gastro-esophageal reflux disease without esophagitis; D64.9 Anemia, unspecified; R07.9 Chest pain, unspecified
CPT/HCPCS: 36415; 71045; 80053; 82550; 83690; 83735; 84484; 85025; 85610; 85730; 93005; 99283; 99284